=== PATIENT | female | born 1960 | race Caucasian/White ===

== ENCOUNTER 2018-08-12 13:48 | Inpatient (IN) ==
[2018-08-12] MEDS ORDERED: Ondansetron ODT 4 MG TAB.RAPDIS PO PRN ×2 (14:05→18:55)
[2018-08-12] MEDS: *HR* HYDROmorphone 2 MG TABLET PO PRN ×2 (17:12→22:32)
[2018-08-12] MEDS ORDERED: GABAPENTIN 1200 MG PO SCH (18:00)
[2018-08-12] MEDS: Morphine Intrathecdal Pump IT SCH (19:00)
[2018-08-12] MEDS: Celecoxib 100 MG CAPSULE PO SCH (20:01)
[2018-08-12] MEDS: Furosemide 20 MG TABLET PO SCH (20:02)
[2018-08-12] MEDS: Gabapentin 400 MG CAPSULE PO SCH (20:07)
[2018-08-13] MEDS: *HR* HYDROmorphone 2 MG TABLET PO PRN ×4 (03:09→19:25)
[2018-08-13 05:46] LABS: Basophils % 0.7 %; Eosinophils # 0.2 K/mcL (0.0-0.6); Eosinophils % 3.9 %; Hematocrit 33.3 % (35.3-44.9); Hemoglobin 10.9 g/dL (11.5-15.4); Immature Granulocytes % 0.4 % (0-4); Lymphocytes # 1.9 K/mcL (0.6-4.6); Lymphocytes % 33.5 %; Mean Corpuscular HGB Conc 32.7 g/dL (31.6-35.5); Mean Corpuscular Hemoglobin 28.4 pg (28.0-33.3); Mean Corpuscular Volume 86.7 fL (83.0-100.0); Mean Platelet Volume 10.4 fL (9.4-12.4); Monocytes # 0.4 K/mcL (0.0-1.3); Monocytes % 7.3 %; Platelet Count 302 K/mcL (140-400); Red Blood Count 3.84 M/mcL (3.82-4.97); Segmented Neutrophils % 54.2 %; White Blood Count 5.6 K/mcL (4.3-11.1)
[2018-08-13 05:58] LABS: BUN/Creatinine Ratio 24 (6-26); Blood Urea Nitrogen 19 mg/dL (6-20); Carbon Dioxide 29 mEq/L (23-29); Chloride 99 mEq/L (98-107); Glucose 92 mg/dL (70-105); Osmolality,Calculated 284 (280-300); Potassium 4.3 mEq/L (3.5-5.1); Sodium 136 mEq/L (136-145); eGFR For African Americans > 60 (> 60); eGFR For Non-African Americans > 60 (> 60)
[2018-08-13 06:13] LABS: Activated Partial Thrombo Time 35.9 Seconds (26.0-36.0); INR 0.9; Prothrombin Time 10.5 Seconds (9.4-12.1)
[2018-08-13] MEDS: Celecoxib 100 MG CAPSULE PO SCH ×2 (08:50→21:09)
[2018-08-13] MEDS: ESOMEPRAZOLE 40MG PO SCH ×3 (08:50→17:32)
[2018-08-13] MEDS: Furosemide 20 MG TABLET PO SCH ×2 (08:50→21:09)
[2018-08-13] MEDS: Gabapentin 300 MG CAPSULE PO SCH (08:50)
[2018-08-13] MEDS: Morphine Intrathecdal Pump IT SCH (13:38)
--- NOTE | 2018-08-13 17:10 | Internal Med History&Physical ---
Date of Encounter: 08/13/18 Time of Encounter: 16:45 Assessment and Plan (1) Pubic ramus fracture Current visit: No Status: Acute Nonoperative intervention. PT and OT evaluations have been ordered. Analgesics will be continued. Qualifiers: Fracture type: closed Laterality: right Fracture healing: with routine healing Qualified Code(s): S32.591D - Other specified fracture of right pubis, subsequent encounter for fracture with routine healing (2) Osteogenesis imperfecta Current visit: No Status: Acute Fracture treatment as above. (3) GERD (gastroesophageal reflux disease) Current visit: No Status: Chronic She reports omeprazole is not efficacious. I told her she could use Nexium from her own supply. Qualifiers: Esophagitis presence: esophagitis presence not specified Qualified Code(s): K21.9 - Gastro-esophageal reflux disease without esophagitis (4) HTN (hypertension) Current visit: No Status: Chronic Continue lisinopril and Lasix. Qualifiers: Hypertension type: essential hypertension Qualified Code(s): I10 - Essential (primary) hypertension (5) Anemia Current visit: Yes Status: Acute Present intermittently since February 2015. Anemia testing will be done in a.m. Qualifiers: Anemia type: unspecified type Qualified Code(s): D64.9 - Anemia, unspecified Internal Medicine - H&P: HPI Chief complaint: Acetabulum fracture Admitted From: Hospital to Hospital Transfer Plans for Post Hospital Care: Home History of present illness: Ms. Cabello is a 58 year old female who was hospitalized at [facility] August 08- after presenting with a low impact fall at home. She was found to have nondisplaced pubic root fracture extending into the right acetabulum. She was treated nonoperatively. She was discharged to [facility] swing bed for rehabilitation therapy prior to returning to independent living at home. She was diagnosed with osteogenesis imperfecta at age 14 months. She reports she has had "more than 250 fractures" with multiple surgeries. She has not wal ked for over 4 years and uses a power chair for mobility. She has been able to do transfers independently prior to present injury. She denies other bone joint or muscle disorders. Past Med Surg Social Fam HX - Past Medical History Medical history: GERD, hypertension, other Additional medical history: Multiple FRACTURES Psychiatric history: anxiety, depression - Past Surgical History Surgical History: other Additional surgical history: "corrective surgeries"/ortho surgeries (over 55); pain pump. - Social History Smoking Status: Never smoker Smokeless Tobacco Status: No Alcohol use: none Drug use: none - Family History Mother Living Status: Hx Family Cardiac Disorders: Yes (HTN) Hx Family Respiratory Disorders: No Hx Family Cancer: Yes Hx Family GI Disorders: Yes Hx Family Endocrine Disorder: Yes (DM II) Hx Family Neuromuscular Disorders: No Hx Family Neurologic Disorders: No Hx Family HEENT Disorders: No Hx Family Autoimmune Disorders: No Internal Medicine - H&P: Meds Celecoxib [Celebrex] 200 mg PO BID 08/08/18 [History] DULoxetine [Cymbalta] 30 mg PO BID 08/08/18 [History] Esomeprazole Magnesium [Nexium] 40 mg PO BID 08/08/18 [History] Furosemide [Lasix] 20 mg PO BID 08/08/18 [History] Gabapentin 1,200 mg PO HS 08/08/18 [History] Gabapentin 1,200 mg PO QPM 08/08/18 [History] Gabapentin 600 mg PO QAM 08/08/18 [History] Lisinopril [Zestril] 10 mg PO DAILY 08/08/18 [History] Morphine Sulfate/Pf [Morphine IntraThecdal Pump] 1 each IT AD 08/08/18 [History] Ondansetron [Zofran ODT] 8 mg PO 6XD PRN 08/08/18 [History] Tramadol HCl [Ultram] 50 mg PO Q8H PRN 08/08/18 [History] Cyclobenzaprine [Flexeril] 10 mg PO TID PRN #30 tablet 08/12/18 [Rx] HYDROmorphone [Dilaudid] 3 mg PO Q4HR PRN 3 Days #15 tablet 08/12/18 [Rx] Allergy/AdvReac Type Severity Reaction Status Date / Time acetaminophen [From Percocet] AdvReac See Verified 07/05/18 13:26 Comments baclofen AdvReac Blurry Verified 07/05/18 13:26 Vision ibuprofen AdvReac Nausea Verified 07/05/18 13:26 methadone AdvReac See Verified 07/05/18 13:26 Comments naproxen [From Aleve] AdvReac Nausea Verified 07/05/18 13:26 oxycodone [From Percocet] AdvReac See Verified 07/05/18 13:26 Comments oxymorphone [From Opana] AdvReac See Verified 07/05/18 13:26 Comments pregabalin [From Lyrica] AdvReac See Verified 07/05/18 13:26 Comments Tizanidine [From Zanaflex] AdvReac Blurry Verified 07/05/18 13:26 Vision tramadol [From Ultracet] AdvReac See Verified 07/05/18 13:26 Comments All Systems PM: A 10-system review of systems was performed and is negative for pertinent findings except as documented above in the HPI. Review of systems: Gen.: She states her weight has decreased from 180 pounds to 153 pounds in the past few months, intentionally Cardiovascular: She has history of hypertension but denies NM heart failure angina DVT or pulmonary embolus Respiratory: She is a lifelong nonsmoker and denies chronic lung disease GI: She has GERD. She denies disorders of her liver gallbladder or exocrine pancreas : She denies hematuria dysuria or kidney stones Neurologic: She reports febrile seizures in childhood. She reports one seizure as an adult several years ago of uncertain etiology. She is not on seizure medication. She denies large distribution strokes or other neurologic disorders Endocrine: She denies diabetes thyroid disease or hyperlipidemia Hematology/oncology: She denies blood disorders cancers or anemia Psychiatric: She denies anxiety depression or other mental health issues [place] skeletal: As per history of present illness - Constitutional Vitals: Temp Pulse Resp BP Pulse Ox 98.2 F 86 17 132/69 95 08/13/18 06:56 08/13/18 06:56 08/12/18 16:22 08/13/18 06:56 08/13/18 06:56 Exam: Gen.: She is a well-developed well-nourished female sitting in a chair at bedside who appears in no acute distress HEENT: Head is atraumatic and normocephalic. Eyes: EOMI. There is no scleral icterus. Mouth: Mucosa is moist. Neck: There is no thyromegaly or adenopathy noted. Heart: Regular without murmurs gallops or ectopics Lungs: No wheezes or crackles are heard. Abdomen: Soft and nontender. No masses or guarding are noted. Exam is limited because she is in the seated position. Extremities: There is no edema of her lower legs. She has mild DJD changes of her hands. Neurologic: Mental status: She is talkative and a good historian. Cranial nerves: Smile is symmetric. Forehead wrinkles bilaterally. Tongue protrudes mi dline. EOMI. Motor: There is no pronator drift. Cerebellar: Finger to nose is intact bilaterally. Skin: Warm and dry Internal Med - H&P Results - Labs CBC & Chem 7: 08/13/18 05:20 08/13/18 05:20 Labs: Short CBC 08/13/18 Range/Units 05:20 WBC 5.6 (4.3-11.1) K/mcL Hgb 10.9 L (11.5-15.4) g/dL Hct 33.3 L (35.3-44.9) % Plt Count 302 (140-400) K/mcL Neutrophils # 3.0 (1.6-8.9) K/mcL BMP 08/13/18 05:20 Sodium 136 Potassium 4.3 Chloride 99 Carbon Dioxide 29 BUN 19 Creatinine 0.78 Glucose 92 Calcium 9.0
[2018-08-13] MEDS: Gabapentin 400 MG CAPSULE PO SCH ×2 (17:32→21:10)
[2018-08-14] MEDS: Artificial Tears SOLN 15 ML BOTTLE BOTH EYES PRN ×3 (00:14→16:27)
[2018-08-14] MEDS: *HR* HYDROmorphone 2 MG TABLET PO PRN ×5 (00:15→22:19)
[2018-08-14 06:13] LABS: Basophils % 0.6 %; Eosinophils # 0.2 K/mcL (0.0-0.6); Eosinophils % 3.3 %; Hematocrit 33.1 % (35.3-44.9); Hemoglobin 10.7 g/dL (11.5-15.4); Immature Granulocytes % 0.4 % (0-4); Lymphocytes % 30.1 %; Mean Corpuscular HGB Conc 32.3 g/dL (31.6-35.5); Mean Corpuscular Hemoglobin 28.2 pg (28.0-33.3); Mean Corpuscular Volume 87.1 fL (83.0-100.0); Mean Platelet Volume 10.7 fL (9.4-12.4); Monocytes # 0.5 K/mcL (0.0-1.3); Neutrophils # 3.9 K/mcL (1.6-8.9); Platelet Count 306 K/mcL (140-400); Segmented Neutrophils % 57.6 %; White Blood Count 6.7 K/mcL (4.3-11.1)
[2018-08-14 08:52] LABS: % Iron Saturation 14 % (15-50); Iron 52 mcg/dL (50-170); Transferrin 271 mg/dL (203-362)
[2018-08-14 09:11] LABS: Ferritin 45 ng/mL (10-120)
[2018-08-14] MEDS: Furosemide 20 MG TABLET PO SCH ×2 (09:13→19:44)
[2018-08-14] MEDS: ESOMEPRAZOLE 40MG PO SCH ×2 (09:13→16:27)
[2018-08-14] MEDS: Gabapentin 300 MG CAPSULE PO SCH (09:13)
[2018-08-14 09:15] LABS: Folate 8.8 ng/mL (3.0-16.0)
[2018-08-14] MEDS: Celecoxib 100 MG CAPSULE PO SCH ×2 (09:15→19:44)
[2018-08-14] MEDS: Ondansetron ODT 4 MG TAB.RAPDIS SL PRN (11:20)
[2018-08-14] MEDS: Morphine Intrathecdal Pump IT SCH (14:33)
[2018-08-14] MEDS: Gabapentin 400 MG CAPSULE PO SCH ×2 (16:27→19:43)
[2018-08-14] MEDS ORDERED: Cyanocobalamin (B-12) 1,000 MCG/ML VIAL IM ONE (18:22)
--- NOTE | 2018-08-14 18:22 | Internal Med Progress Note ---
Date of Encounter: 08/14/18 Time of Encounter: 18:10 - Assessment and plan (1) Pubic ramus fracture Current Visit: No Status: Acute Assessment and plan: August 14. Continue PT and OT with analgesics. Qualifiers: Fracture type: closed Laterality: right Fracture healing: with routine healing Qualified Code(s): S32.591D - Other specified fracture of right pubis, subsequent encounter for fracture with routine healing (2) Osteogenesis imperfecta Current Visit: No Status: Acute Assessment and plan: August 14. Continue present Rx (3) GERD (gastroesophageal reflux disease) Current Visit: No Status: Chronic Assessment and plan: August 14. Continue Nexium. We discussed reducing the dose to improve absorption of iron. Qualifiers: Esophagitis presence: esophagitis presence not specified Qualified Code(s): K21.9 - Gastro-esophageal reflux disease without esophagitis (4) HTN (hypertension) Current Visit: No Status: Chronic Assessment and plan: August 14. Continue lisinopril and Lasix Qualifiers: Hypertension type: essential hypertension Qualified Code(s): I10 - Essential (primary) hypertension (5) Anemia Current Visit: Yes Status: Acute Assessment and plan: August 14. Anemia testing showed iron 52, transferrin saturation 14%, transferrin 271, ferritin 45, B12 221, and folate 8.8. She will be started on ferrous sulfate with ascorbic acid. She will receive a B12 injection today and start oral B12 supplement. Qualifiers: Anemia type: unspecified type Qualified Code(s): D64.9 - Anemia, unspecified - Subjective Interval history: August 14. She has no new complaints. - Constitutional Vitals: Temp Pulse Resp BP Pulse Ox 97.8 F 77 14 114/56 93 08/14/18 06:57 08/14/18 06:57 08/14/18 06:57 08/14/18 06:57 08/14/18 06:57 Exam: She is resting In a chair at bedside and appears in no acute distress. Her affect is bright and cheerful. I reviewed her medications and lab results. Internal Medicine: Result - Labs CBC & Chem 7: 08/14/18 05:03 08/13/18 05:20 Labs: Short CBC 08/14/18 Range/Units 05:03 WBC 6.7 (4.3-11.1) K/mcL Hgb 10.7 L (11.5-15.4) g/dL Hct 33.1 L (35.3-44.9) % Plt Count 306 (140-400) K/mcL Neutrophils # 3.9 (1.6-8.9) K/mcL - ABG Interpretation ABG results: PT/INR, D-dimer PT 10.5 Seconds (9.4-12.1) 08/13/18 05:20 Consult Discharge Plan - Plan Referrals: Skip Costa DO [Primary Care Provider] - 1 week
[2018-08-15] MEDS: *HR* HYDROmorphone 2 MG TABLET PO PRN ×4 (03:34→23:27)
[2018-08-15] MEDS: Ondansetron ODT 4 MG TAB.RAPDIS SL PRN ×2 (03:34→10:16)
[2018-08-15] MEDS: Ascorbic Acid 500 MG TABLET PO SCH (06:21)
[2018-08-15] MEDS: Artificial Tears SOLN 15 ML BOTTLE BOTH EYES PRN ×3 (10:13→19:34)
[2018-08-15] MEDS: ESOMEPRAZOLE 40MG PO SCH ×2 (10:13→15:55)
[2018-08-15] MEDS: Celecoxib 100 MG CAPSULE PO SCH ×2 (10:14→20:22)
[2018-08-15] MEDS: Gabapentin 300 MG CAPSULE PO SCH (10:15)
[2018-08-15] MEDS: Cyanocobalamin (B-12) 1,000 MCG TABLET PO SCH (10:15)
[2018-08-15] MEDS: Furosemide 20 MG TABLET PO SCH ×2 (10:18→20:22)
[2018-08-15] MEDS: Gabapentin 400 MG CAPSULE PO SCH ×2 (15:55→20:23)
[2018-08-15] MEDS: Morphine Intrathecdal Pump IT SCH (15:56)
[2018-08-16] MEDS: Ascorbic Acid 500 MG TABLET PO SCH (05:15)
[2018-08-16] MEDS: *HR* HYDROmorphone 2 MG TABLET PO PRN ×4 (05:15→21:53)
[2018-08-16] MEDS: Celecoxib 100 MG CAPSULE PO SCH ×2 (09:12→21:52)
[2018-08-16] MEDS: Artificial Tears SOLN 15 ML BOTTLE BOTH EYES PRN ×2 (09:13→21:58)
[2018-08-16] MEDS: Furosemide 20 MG TABLET PO SCH ×2 (09:13→21:52)
[2018-08-16] MEDS: Gabapentin 300 MG CAPSULE PO SCH (09:13)
[2018-08-16] MEDS: Cyanocobalamin (B-12) 1,000 MCG TABLET PO SCH (09:13)
[2018-08-16] MEDS: ESOMEPRAZOLE 40MG PO SCH ×2 (09:13→16:36)
[2018-08-16] MEDS: Ondansetron ODT 4 MG TAB.RAPDIS SL PRN (09:21)
[2018-08-16] MEDS: Morphine Intrathecdal Pump IT SCH (12:54)
[2018-08-16] MEDS: Gabapentin 400 MG CAPSULE PO SCH ×2 (16:36→21:58)
[2018-08-17] MEDS: *HR* HYDROmorphone 2 MG TABLET PO PRN ×3 (04:15→20:27)
[2018-08-17] MEDS: Ascorbic Acid 500 MG TABLET PO SCH (05:33)
[2018-08-17] MEDS: Celecoxib 100 MG CAPSULE PO SCH ×2 (08:22→20:28)
[2018-08-17] MEDS: Gabapentin 300 MG CAPSULE PO SCH (08:22)
[2018-08-17] MEDS: Furosemide 20 MG TABLET PO SCH ×2 (08:23→20:28)
[2018-08-17] MEDS: Cyanocobalamin (B-12) 1,000 MCG TABLET PO SCH (08:25)
[2018-08-17] MEDS: ESOMEPRAZOLE 40MG PO SCH ×2 (08:25→17:52)
[2018-08-17] MEDS: Ondansetron ODT 4 MG TAB.RAPDIS SL PRN (09:02)
--- NOTE | 2018-08-17 10:23 | Internal Med Progress Note ---
Date of Encounter: 08/17/18 Time of Encounter: 10:15 - Assessment and plan (1) Pubic ramus fracture Current Visit: No Status: Acute Assessment and plan: August 14. Continue PT and OT with analgesics. [place]-3. Continue present Rx. Follow-up with orthopedist in a few weeks. Qualifiers: Fracture type: closed Laterality: right Fracture healing: with routine healing Qualified Code(s): S32.591D - Other specified fracture of right pubis, subsequent encounter for fracture with routine healing (2) Osteogenesis imperfecta Current Visit: No Status: Acute Assessment and plan: August 14. Continue present Rx (3) GERD (gastroesophageal reflux disease) Current Visit: No Status: Chronic Assessment and plan: August 14. Continue Nexium. We discussed reducing the dose to improve absorption of iron. Qualifiers: Esophagitis presence: esophagitis presence not specified Qualified Code(s): K21.9 - Gastro-esophageal reflux disease without esophagitis (4) HTN (hypertension) Current Visit: No Status: Chronic Assessment and plan: August 14. Continue lisinopril and Lasix Qualifiers: Hypertension type: essential hypertension Qualified Code(s): I10 - Essential (primary) hypertension (5) Anemia Current Visit: Yes Status: Acute Assessment and plan: August 14. Anemia testing showed iron 52, transferrin saturation 14%, transfer rin 271, ferritin 45, B12 221, and folate 8.8. She will be started on ferrous sulfate with ascorbic acid. She will receive a B12 injection today and start oral B12 supplement. August 17. Continue ferrous sulfate with ascorbic acid and B12 supplementation. Monitor CBC periodically. Qualifiers: Anemia type: unspecified type Qualified Code(s): D64.9 - Anemia, unspecified - Subjective Interval history: August 14. She has no new complaints. August 17. She complains of nasal congestion. She reports the orthopedist gave her an encouraging report at the visit yesterday. She is to remain TTWB at this time - Constitutional Vitals: Temp Pulse Resp BP Pulse Ox 97.6 F 77 16 91/51 96 08/17/18 06:40 08/17/18 06:40 08/17/18 06:40 08/17/18 06:40 08/17/18 06:40 Exam: She is sitting comfortably in a chair at bedside and appears in no acute distress. Her affect is bright and cheerful. I reviewed her medications and lab results. Internal Medicine: Result - Labs CBC & Chem 7: 08/14/18 05:03 08/13/18 05:20 - ABG Interpretation ABG results: PT/INR, D-dimer PT 10.5 Seconds (9.4-12.1) 08/13/18 05:20 Consult Discharge Plan - Plan Referrals: Skip Costa DO [Primary Care Provider] - 1 week
[2018-08-17] MEDS: Morphine Intrathecdal Pump IT SCH (15:14)
[2018-08-17] MEDS: Gabapentin 400 MG CAPSULE PO SCH ×2 (15:38→20:28)
[2018-08-17] MEDS: Oxymetazoline Nasal SPRAY BOTTLE NS SCH (17:52)
[2018-08-17] MEDS: Artificial Tears SOLN 15 ML BOTTLE BOTH EYES PRN (20:29)
[2018-08-18] MEDS: *HR* HYDROmorphone 2 MG TABLET PO PRN ×4 (02:18→20:39)
[2018-08-18] MEDS: Ascorbic Acid 500 MG TABLET PO SCH (06:37)
[2018-08-18] MEDS: Oxymetazoline Nasal SPRAY BOTTLE NS SCH ×2 (06:40→17:11)
[2018-08-18] MEDS: Gabapentin 300 MG CAPSULE PO SCH (07:45)
[2018-08-18] MEDS: Furosemide 20 MG TABLET PO SCH ×2 (07:46→20:40)
[2018-08-18] MEDS: Celecoxib 100 MG CAPSULE PO SCH ×2 (07:46→20:40)
[2018-08-18] MEDS: ESOMEPRAZOLE 40MG PO SCH ×2 (07:46→17:11)
[2018-08-18] MEDS: Ondansetron ODT 4 MG TAB.RAPDIS SL PRN (07:46)
[2018-08-18] MEDS: Cyanocobalamin (B-12) 1,000 MCG TABLET PO SCH (07:47)
[2018-08-18] MEDS: Artificial Tears SOLN 15 ML BOTTLE BOTH EYES PRN ×2 (14:51→20:40)
[2018-08-18] MEDS: Morphine Intrathecdal Pump IT SCH (16:10)
[2018-08-18] MEDS: Gabapentin 400 MG CAPSULE PO SCH ×2 (17:10→21:48)
[2018-08-19] MEDS: *HR* HYDROmorphone 2 MG TABLET PO PRN ×2 (01:55→18:02)
[2018-08-19] MEDS: Ascorbic Acid 500 MG TABLET PO SCH (06:51)
[2018-08-19] MEDS: Oxymetazoline Nasal SPRAY BOTTLE NS SCH ×2 (06:51→18:10)
[2018-08-19] MEDS: Celecoxib 100 MG CAPSULE PO SCH ×2 (09:26→20:54)
[2018-08-19] MEDS: Gabapentin 300 MG CAPSULE PO SCH (09:29)
[2018-08-19] MEDS: Furosemide 20 MG TABLET PO SCH ×2 (09:29→20:54)
[2018-08-19] MEDS: Cyanocobalamin (B-12) 1,000 MCG TABLET PO SCH (09:29)
[2018-08-19] MEDS: ESOMEPRAZOLE 40MG PO SCH ×2 (09:30→18:10)
[2018-08-19] MEDS: Artificial Tears SOLN 15 ML BOTTLE BOTH EYES PRN ×2 (09:30→18:04)
[2018-08-19] MEDS: Morphine Intrathecdal Pump IT SCH (13:49)
[2018-08-19] MEDS: Gabapentin 400 MG CAPSULE PO SCH ×2 (15:12→20:54)
[2018-08-20] MEDS: *HR* HYDROmorphone 2 MG TABLET PO PRN ×5 (00:10→20:32)
[2018-08-20] MEDS: Ascorbic Acid 500 MG TABLET PO SCH (06:00)
[2018-08-20] MEDS: Oxymetazoline Nasal SPRAY BOTTLE NS SCH ×2 (06:00→06:04)
[2018-08-20] MEDS: Furosemide 20 MG TABLET PO SCH ×2 (09:42→20:31)
[2018-08-20] MEDS: Cyanocobalamin (B-12) 1,000 MCG TABLET PO SCH (09:42)
[2018-08-20] MEDS: Gabapentin 300 MG CAPSULE PO SCH (09:43)
[2018-08-20] MEDS: Celecoxib 100 MG CAPSULE PO SCH ×2 (09:43→20:31)
[2018-08-20] MEDS: Artificial Tears SOLN 15 ML BOTTLE BOTH EYES PRN ×2 (09:43→16:36)
[2018-08-20] MEDS: ESOMEPRAZOLE 40MG PO SCH ×2 (09:43→16:35)
[2018-08-20] MEDS: Morphine Intrathecdal Pump IT SCH (13:48)
[2018-08-20] MEDS: Gabapentin 400 MG CAPSULE PO SCH ×2 (14:39→20:32)
--- NOTE | 2018-08-20 18:54 | Internal Med Progress Note ---
Date of Encounter: 08/20/18 Time of Encounter: 18:45 - Assessment and plan (1) Pubic ramus fracture Current Visit: No Status: Acute Assessment and plan: August 14. Continue PT and OT with analgesics. August 17. Continue present Rx. Follow-up with orthopedist in a few weeks. Qualifiers: Fracture type: closed Laterality: right Fracture healing: with routine healing Qualified Code(s): S32.591D - Other specified fracture of right pubis, subsequent encounter for fracture with routine healing (2) Osteogenesis imperfecta Current Visit: No Status: Acute Assessment and plan: August 14. Continue present Rx (3) GERD (gastroesophageal reflux disease) Current Visit: No Status: Chronic Assessment and plan: August 14. Continue Nexium. We discussed reducing the dose to improve absorption of iron. Qualifiers: Esophagitis presence: esophagitis presence not specified Qualified Code(s): K21.9 - Gastro-esophageal reflux disease without esophagitis (4) HTN (hypertension) Current Visit: No Status: Chronic Assessment and plan: August 14. Continue lisinopril and Lasix Qualifiers: Hypertension type: essential hypertension Qualified Code(s): I10 - Essential (primary) hypertension (5) Anemia Current Visit: Yes Status: Acute Assessment and plan: August 14. Anemia testing showed iron 52, transferrin saturation 14%, transferri n 271, ferritin 45, B12 221, and folate 8.8. She will be started on ferrous sulfate with ascorbic acid. She will receive a B12 injection today and start oral B12 supplement. August 17. Continue ferrous sulfate with ascorbic acid and B12 supplementation. Monitor CBC periodically. Qualifiers: Anemia type: unspecified type Qualified Code(s): D64.9 - Anemia, unspecified - Subjective Interval history: August 14. She has no new complaints. August 17. She complains of nasal congestion. She reports the orthopedist gave her an encouraging report at the visit yesterday. She is to remain TTWB at this ti me August 20. She has no new complaints. She feels she is making progress but is not ready to return home yet. - Constitutional Vitals: Temp Pulse Resp BP Pulse Ox 98.4 F 91 16 106/65 93 08/20/18 06:56 08/20/18 06:56 08/20/18 06:56 08/20/18 06:56 08/20/18 06:56 Exam: She is resting comfortably in a chair at bedside and appears in no acute distress. Her affect is cheerful. She has trace to 1+ edema of the right lower leg and trace edema in the left lower leg. I reviewed her medications and lab results. Internal Medicine: Result - Labs CBC & Chem 7: 08/14/18 05:03 08/13/18 05:20 - ABG Interpretation ABG results: PT/INR, D-dimer PT 10.5 Seconds (9.4-12.1) 08/13/18 05:20 Consult Discharge Plan - Plan Referrals: Skip Costa DO [Primary Care Provider] - 1 week
[2018-08-21] MEDS: *HR* HYDROmorphone 2 MG TABLET PO PRN ×5 (01:40→20:45)
[2018-08-21] MEDS: Ascorbic Acid 500 MG TABLET PO SCH (05:43)
[2018-08-21] MEDS: ESOMEPRAZOLE 40MG PO SCH ×2 (07:58→16:05)
[2018-08-21] MEDS: Gabapentin 300 MG CAPSULE PO SCH (07:58)
[2018-08-21] MEDS: Celecoxib 100 MG CAPSULE PO SCH ×2 (07:58→20:45)
[2018-08-21] MEDS: Cyanocobalamin (B-12) 1,000 MCG TABLET PO SCH (07:59)
[2018-08-21] MEDS: Furosemide 20 MG TABLET PO SCH ×2 (07:59→20:44)
[2018-08-21] MEDS: Morphine Intrathecdal Pump IT SCH (12:48)
[2018-08-21] MEDS: Gabapentin 400 MG CAPSULE PO SCH ×2 (16:05→20:48)
[2018-08-22] MEDS: *HR* HYDROmorphone 2 MG TABLET PO PRN ×5 (01:15→20:31)
[2018-08-22] MEDS: Ascorbic Acid 500 MG TABLET PO SCH (05:26)
[2018-08-22] MEDS: ESOMEPRAZOLE 40MG PO SCH ×2 (08:39→16:20)
[2018-08-22] MEDS: Artificial Tears SOLN 15 ML BOTTLE BOTH EYES PRN (08:39)
[2018-08-22] MEDS: Gabapentin 300 MG CAPSULE PO SCH (08:40)
[2018-08-22] MEDS: Celecoxib 100 MG CAPSULE PO SCH ×2 (08:40→20:32)
[2018-08-22] MEDS: Furosemide 20 MG TABLET PO SCH ×2 (08:40→20:31)
[2018-08-22] MEDS: Cyanocobalamin (B-12) 1,000 MCG TABLET PO SCH (08:40)
[2018-08-22] MEDS: Morphine Intrathecdal Pump IT SCH (13:43)
[2018-08-22] MEDS: Gabapentin 400 MG CAPSULE PO SCH ×2 (16:18→20:33)
[2018-08-23] MEDS: *HR* HYDROmorphone 2 MG TABLET PO PRN ×4 (02:06→21:43)
[2018-08-23] MEDS: Ascorbic Acid 500 MG TABLET PO SCH (06:29)
[2018-08-23] MEDS: Furosemide 20 MG TABLET PO SCH ×2 (09:13→20:17)
[2018-08-23] MEDS: Celecoxib 100 MG CAPSULE PO SCH ×2 (09:13→20:17)
[2018-08-23] MEDS: Gabapentin 300 MG CAPSULE PO SCH (09:14)
[2018-08-23] MEDS: Cyanocobalamin (B-12) 1,000 MCG TABLET PO SCH (09:14)
[2018-08-23] MEDS: ESOMEPRAZOLE 40MG PO SCH ×2 (09:14→17:27)
[2018-08-23] MEDS: Artificial Tears SOLN 15 ML BOTTLE BOTH EYES PRN (09:14)
--- NOTE | 2018-08-23 12:15 | Internal Med Progress Note ---
Date of Encounter: 08/23/18 Time of Encounter: 12:05 - Assessment and plan (1) Pubic ramus fracture Current Visit: No Status: Acute Assessment and plan: August 14. Continue PT and OT with analgesics. August 17. Continue present Rx. Follow-up with orthopedist in a few weeks. Qualifiers: Fracture type: closed Laterality: right Fracture healing: with routine healing Qualified Code(s): S32.591D - Other specified fracture of right pubis, subsequent encounter for fracture with routine healing (2) Osteogenesis imperfecta Current Visit: No Status: Acute Assessment and plan: August 14. Continue present Rx (3) GERD (gastroesophageal reflux disease) Current Visit: No Status: Chronic Assessment and plan: August 14. Continue Nexium. We discussed reducing the dose to improve absorption of iron. Qualifiers: Esophagitis presence: esophagitis presence not specified Qualified Code(s): K21.9 - Gastro-esophageal reflux disease without esophagitis (4) HTN (hypertension) Current Visit: No Status: Chronic Assessment and plan: August 14. Continue lisinopril and Lasix Qualifiers: Hypertension type: essential hypertension Qualified Code(s): I10 - Essential (primary) hypertension (5) Anemia Current Visit: Yes Status: Acute Assessment and plan: August 14. Anemia testing showed iron 52, transferrin saturation 14%, transferri n 271, ferritin 45, B12 221, and folate 8.8. She will be started on ferrous sulfate with ascorbic acid. She will receive a B12 injection today and start oral B12 supplement. August 17. Continue ferrous sulfate with ascorbic acid and B12 supplementation. Monitor CBC periodically. August 23. Check CBC in a.m. She wishes to contact her PCP and see if there are additional labs he wishes to have drawn before her follow-up visit with him shortly after discharge next week. Qualifiers: Anemia type: unspecified type Qualified Code(s): D64.9 - Anemia, unspecified - Subjective Interval history: August 14. She has no new complaints. August 17. She complains of nasal congestion. She reports the orthopedist gave her an encouraging report at the visit yesterday. She is to remain TTWB at this time August 20. She has no new complaints. She feels she is making progress but is not ready to return home yet. August 23. She has no new complaints. She states the intensity of her pain has overall lessened but its duration has slightly increased. She has noted some pain in her left hip area after therapy today. - Constitutional Vitals: Temp Pulse Resp BP Pulse Ox 97.9 F 79 16 119/80 96 08/23/18 06:37 08/23/18 06:37 08/23/18 06:37 08/23/18 06:37 08/23/18 06:37 Exam: She is sitting in a chair at bedside resting comfortably and appears in no acute distress. Her affect is bright and cheerful. I reviewed her medications and lab results. Internal Medicine: Result - Labs CBC & Chem 7: 08/14/18 05:03 08/13/18 05:20 - ABG Interpretation ABG results: PT/INR, D-dimer PT 10.5 Seconds (9.4-12.1) 08/13/18 05:20 Consult Discharge Plan - Plan Referrals: Skip Costa DO [Primary Care Provider] - 1 week
[2018-08-23] MEDS: Morphine Intrathecdal Pump IT SCH (13:42)
[2018-08-23] MEDS: Gabapentin 400 MG CAPSULE PO SCH ×2 (14:51→20:18)
[2018-08-23] MEDS: traMADol 50 MG TABLET PO PRN (20:17)
[2018-08-24] MEDS: *HR* HYDROmorphone 2 MG TABLET PO PRN ×4 (04:02→21:07)
[2018-08-24] MEDS: ESOMEPRAZOLE 40MG PO SCH ×2 (06:29→15:34)
[2018-08-24] MEDS: Ascorbic Acid 500 MG TABLET PO SCH (06:29)
[2018-08-24] MEDS: traMADol 50 MG TABLET PO PRN (06:29)
[2018-08-24 06:38] LABS: Basophils % 0.5 %; Eosinophils # 0.4 K/mcL (0.0-0.6); Hematocrit 31.9 % (35.3-44.9); Hemoglobin 10.3 g/dL (11.5-15.4); Immature Granulocytes % 0.6 % (0-4); Lymphocytes # 1.6 K/mcL (0.6-4.6); Lymphocytes % 24.7 %; Mean Corpuscular HGB Conc 32.3 g/dL (31.6-35.5); Mean Corpuscular Hemoglobin 28.1 pg (28.0-33.3); Mean Corpuscular Volume 86.9 fL (83.0-100.0); Mean Platelet Volume 10.5 fL (9.4-12.4); Monocytes # 0.4 K/mcL (0.0-1.3); Monocytes % 6.9 %; Neutrophils # 3.9 K/mcL (1.6-8.9); Platelet Count 333 K/mcL (140-400); Red Blood Count 3.67 M/mcL (3.82-4.97); Red Cell Distribution Width 12.4 % (11.5-14.5); Segmented Neutrophils % 61.3 %; White Blood Count 6.4 K/mcL (4.3-11.1)
[2018-08-24] MEDS: Furosemide 20 MG TABLET PO SCH ×2 (08:23→21:07)
[2018-08-24] MEDS: Cyanocobalamin (B-12) 1,000 MCG TABLET PO SCH (08:23)
[2018-08-24] MEDS: Celecoxib 100 MG CAPSULE PO SCH ×2 (08:23→21:06)
[2018-08-24] MEDS: Gabapentin 300 MG CAPSULE PO SCH (08:24)
[2018-08-24] MEDS: Ondansetron ODT 4 MG TAB.RAPDIS SL PRN (08:24)
[2018-08-24] MEDS: Morphine Intrathecdal Pump IT SCH (15:29)
[2018-08-24] MEDS: Gabapentin 400 MG CAPSULE PO SCH ×2 (15:34→21:14)
[2018-08-24] MEDS: Artificial Tears SOLN 15 ML BOTTLE BOTH EYES PRN ×2 (15:38→21:06)
[2018-08-25] MEDS: traMADol 50 MG TABLET PO PRN ×3 (00:02→17:33)
[2018-08-25] MEDS: *HR* HYDROmorphone 2 MG TABLET PO PRN ×3 (03:29→21:52)
[2018-08-25] MEDS: Ascorbic Acid 500 MG TABLET PO SCH (05:34)
[2018-08-25] MEDS: ESOMEPRAZOLE 40MG PO SCH ×2 (09:29→15:57)
[2018-08-25] MEDS: Furosemide 20 MG TABLET PO SCH (09:29)
[2018-08-25] MEDS: Cyanocobalamin (B-12) 1,000 MCG TABLET PO SCH (09:30)
[2018-08-25] MEDS: Gabapentin 300 MG CAPSULE PO SCH (09:30)
[2018-08-25] MEDS: Celecoxib 100 MG CAPSULE PO SCH ×2 (09:30→21:53)
[2018-08-25] MEDS: Morphine Intrathecdal Pump IT SCH (13:11)
[2018-08-25] MEDS: Gabapentin 400 MG CAPSULE PO SCH ×2 (15:57→21:53)
--- NOTE | 2018-08-25 17:10 | Internal Med Progress Note ---
Date of Encounter: 08/25/18 Time of Encounter: 17:00 - Assessment and plan (1) Pubic ramus fracture Current Visit: No Status: Acute Assessment and plan: August 14. Continue PT and OT with analgesics. August 17. Continue present Rx. Follow-up with orthopedist in a few weeks. August 25. Start Lovenox for DVT prophylaxis. Qualifiers: Fracture type: closed Laterality: right Fracture healing: with routine healing Qualified Code(s): S32.591D - Other specified fracture of right pubis, subsequent encounter for fracture with routine healing (2) Osteogenesis imperfecta Current Visit: No Status: Acute Assessment and plan: August 14. Continue present Rx (3) GERD (gastroesophageal reflux disease) Current Visit: No Status: Chronic Assessment and plan: August 14. Continue Nexium. We discussed reducing the dose to improve absorpti on of iron. Qualifiers: Esophagitis presence: esophagitis presence not specified Qualified Code(s): K21.9 - Gastro-esophageal reflux disease without esophagitis (4) HTN (hypertension) Current Visit: No Status: Chronic Assessment and plan: August 14. Continue lisinopril and Lasix August 25. Continue lisinopril. Change from Lasix to Bumex. Qualifiers: Hypertension type: essential hypertension Qualified Code(s): I10 - Essential (primary) hypertension (5) Anemia Current Visit: Yes Status: Acute Assessment and plan: August 14. Anemia testing showed iron 52, transferrin saturation 14%, trans anny 271, ferritin 45, B12 221, and folate 8.8. She will be started on ferrous sulfate with ascorbic acid. She will receive a B12 injection today and start oral B12 supplement. August 17. Continue ferrous sulfate with ascorbic acid and B12 supplementation. Monitor CBC periodically. August 23. Check CBC in a.m. She wishes to contact her PCP and see if there are additional labs he wishes to have drawn before her follow-up visit with him shortly after discharge next week. August 25. Hemoglobin has slightly decreased to 10.3. Continue to monitor. Qualifiers: Anemia type: unspecified type Qualified Code(s): D64.9 - Anemia, unspecified (6) Edema Current Visit: Yes Status: Acute Assessment and plan: August 25. Check BN peptide in a.m. Change from Lasix to Bumex. Qualifiers: Edema type: unspecified Qualified Code(s): R60.9 - Edema, unspecified - Subjective Interval history: August 14. She has no new complaints. August 17. She complains of nasal congestion. She reports the orthopedist gave her an encouraging report at the visit yesterday. She is to remain TTWB at this time August 20. She has no new complaints. She feels she is making progress but is not ready to return home yet. August 23. She has no new complaints. She states the intensity of her pain has overall lessened but its duration has slightly increased. She has noted some p ain in her left hip area after therapy today. August 25. She states her lower legs are more swollen than prior to coming in the hospital. - Constitutional Vitals: Temp Pulse Resp BP Pulse Ox 98.4 F 85 16 105/72 94 08/25/18 08:46 08/25/18 08:46 08/25/18 08:46 08/25/18 08:46 08/25/18 08:46 Exam: She is sitting in a chair at bedside resting comfortably eating her meal. There is 1-2+ edema bilaterally of the lower legs and dorsum of the feet. There does not appear to be active cellulitis. I reviewed her medications and lab results. Internal Medicine: Result - Labs CBC & Chem 7: 08/24/18 05:31 08/13/18 05:20 - ABG Interpretation ABG results: PT/INR, D-dimer PT 10.5 Seconds (9.4-12.1) 08/13/18 05:20 Consult Discharge Plan - Plan Referrals: Skip Costa DO [Primary Care Provider] - 1 week
[2018-08-25] MEDS: Bumetanide 1 MG TABLET PO SCH (17:33)
[2018-08-25] MEDS: Artificial Tears SOLN 15 ML BOTTLE BOTH EYES PRN (21:53)
[2018-08-26] MEDS: traMADol 50 MG TABLET PO PRN ×3 (01:33→22:01)
[2018-08-26] MEDS: *HR* HYDROmorphone 2 MG TABLET PO PRN ×4 (03:48→19:55)
[2018-08-26 05:29] LABS: Basophils % 0.6 %; Eosinophils # 0.3 K/mcL (0.0-0.6); Eosinophils % 5.4 %; Hematocrit 33.3 % (35.3-44.9); Hemoglobin 10.9 g/dL (11.5-15.4); Immature Granulocytes % 0.3 % (0-4); Lymphocytes # 1.8 K/mcL (0.6-4.6); Lymphocytes % 27.7 %; Mean Corpuscular HGB Conc 32.7 g/dL (31.6-35.5); Mean Corpuscular Hemoglobin 28.4 pg (28.0-33.3); Mean Corpuscular Volume 86.7 fL (83.0-100.0); Mean Platelet Volume 10.4 fL (9.4-12.4); Monocytes # 0.5 K/mcL (0.0-1.3); Monocytes % 8.2 %; Neutrophils # 3.7 K/mcL (1.6-8.9); Platelet Count 354 K/mcL (140-400); Red Blood Count 3.84 M/mcL (3.82-4.97); Red Cell Distribution Width 12.5 % (11.5-14.5); Segmented Neutrophils % 57.8 %; White Blood Count 6.4 K/mcL (4.3-11.1)
[2018-08-26 05:57] LABS: BUN/Creatinine Ratio 32 (6-26); Blood Urea Nitrogen 24 mg/dL (6-20); Calcium 9.1 mg/dL (8.6-10.3); Carbon Dioxide 31 mEq/L (23-29); Chloride 92 mEq/L (98-107); Glucose 103 mg/dL (70-105); Osmolality,Calculated 276 (280-300); Sodium 131 mEq/L (136-145); eGFR For African Americans > 60 (> 60); eGFR For Non-African Americans > 60 (> 60)
[2018-08-26] MEDS: *HR* Enoxaparin 40 MG/0.4 ML SYRINGE SQ SCH (06:46)
[2018-08-26] MEDS: Ascorbic Acid 500 MG TABLET PO SCH (06:46)
[2018-08-26] MEDS: Ondansetron ODT 4 MG TAB.RAPDIS SL PRN (07:58)
[2018-08-26] MEDS: ESOMEPRAZOLE 40MG PO SCH ×2 (07:59→16:55)
[2018-08-26] MEDS: Artificial Tears SOLN 15 ML BOTTLE BOTH EYES PRN ×2 (08:00→16:55)
[2018-08-26] MEDS: Cyanocobalamin (B-12) 1,000 MCG TABLET PO SCH (09:45)
[2018-08-26] MEDS: Celecoxib 100 MG CAPSULE PO SCH ×2 (09:45→19:54)
[2018-08-26] MEDS: Bumetanide 1 MG TABLET PO SCH ×2 (09:45→16:55)
[2018-08-26] MEDS: Gabapentin 300 MG CAPSULE PO SCH (09:45)
[2018-08-26 10:59] LABS: % Iron Saturation 9 % (15-50); Iron 39 mcg/dL (50-170); Transferrin 296 mg/dL (203-362)
[2018-08-26 11:18] LABS: Ferritin 30 ng/mL (10-120)
[2018-08-26] MEDS: Morphine Intrathecdal Pump IT SCH (13:57)
[2018-08-26] MEDS: Gabapentin 400 MG CAPSULE PO SCH ×2 (17:00→22:09)
[2018-08-27] MEDS: *HR* HYDROmorphone 2 MG TABLET PO PRN ×4 (00:32→19:59)
[2018-08-27] MEDS: *HR* Enoxaparin 40 MG/0.4 ML SYRINGE SQ SCH (05:10)
[2018-08-27] MEDS: Ascorbic Acid 500 MG TABLET PO SCH (05:10)
[2018-08-27] MEDS: Ondansetron ODT 4 MG TAB.RAPDIS SL PRN (05:10)
[2018-08-27] MEDS: Bumetanide 1 MG TABLET PO SCH ×2 (07:45→16:46)
[2018-08-27] MEDS: ESOMEPRAZOLE 40MG PO SCH ×2 (07:45→16:47)
[2018-08-27] MEDS: traMADol 50 MG TABLET PO PRN ×2 (08:01→16:46)
[2018-08-27] MEDS: Celecoxib 100 MG CAPSULE PO SCH ×2 (10:33→19:59)
[2018-08-27] MEDS: Cyanocobalamin (B-12) 1,000 MCG TABLET PO SCH (10:33)
[2018-08-27] MEDS: Gabapentin 300 MG CAPSULE PO SCH (10:33)
[2018-08-27] MEDS: Morphine Intrathecdal Pump IT SCH (14:58)
[2018-08-27] MEDS: Gabapentin 400 MG CAPSULE PO SCH ×2 (15:05→19:59)
[2018-08-27] MEDS: Artificial Tears SOLN 15 ML BOTTLE BOTH EYES PRN (16:47)
--- NOTE | 2018-08-27 19:17 | Internal Med Progress Note ---
Date of Encounter: 08/27/18 Time of Encounter: 19:00 - Assessment and plan (1) Pubic ramus fracture Current Visit: No Status: Acute Assessment and plan: August 14. Continue PT and OT with analgesics. August 17. Continue present Rx. Follow-up with orthopedist in a few weeks. August 25. Start Lovenox for DVT prophylaxis. Qualifiers: Fracture type: closed Laterality: right Fracture healing: with routine healing Qualified Code(s): S32.591D - Other specified fracture of right pubis, subsequent encounter for fracture with routine healing (2) Osteogenesis imperfecta Current Visit: No Status: Acute Assessment and plan: August 14. Continue present Rx (3) GERD (gastroesophageal reflux disease) Current Visit: No Status: Chronic Assessment and plan: August 14. Continue Nexium. We discussed reducing the dose to improve absorpti on of iron. August 27. She does not wish to reduce Nexium to improve her iron absorption. She complains of mid abdominal discomfort in addition to GERD. Fecal H. pylori antigen will be ordered. Qualifiers: Esophagitis presence: esophagitis presence not specified Qualified Code(s): K21.9 - Gastro-esophageal reflux disease without esophagitis (4) HTN (hypertension) Current Visit: No Status: Chronic Assessment and plan: August 14. Continue lisinopril and Lasix August 25. Continue lisinopril. Change from Lasix to Bumex. Qualifiers: Hypertension type: essential hypertension Qualified Code(s): I10 - Essential (primary) hypertension (5) Anemia Current Visit: Yes Status: Acute Assessment and plan: August 14. Anemia testing showed iron 52, transferrin saturation 14%, transferrin 271, ferritin 45, B12 221, and folate 8.8. She will be started on ferrous sulfate with ascorbic acid. She will receive a B12 injection today and start oral B12 supplement. August 17. Continue ferrous sulfate with ascorbic acid and B12 supplementation. Monitor CBC periodically. August 23. Check CBC in a.m. She wishes to contact her PCP and see if there are additional labs he wishes to have drawn before her follow-up visit with him shortly after discharge next week. August 25. Hemoglobin has slightly decreased to 10.3. Continue to monitor. August 27. Repeat iron studies show iron 39, transferrin saturation 9%, transferrin 296, and ferritin 30. She does not want to discontinue PPI to facilitate iron absorption due to GERD symptoms. Iron sucrose will be given IV. Qualifiers: Anemia type: unspecified type Qualified Code(s): D64.9 - Anemia, unspec ified (6) Edema Current Visit: Yes Status: Acute Assessment and plan: August 25. Check BN peptide in a.m. Change from Lasix to Bumex. August 27. BN peptide normal at 51. Discontinue Celebrex and see if edema lessens. Qualifiers: Edema type: unspecified Qualified Code(s): R60.9 - Edema, unspecified - Subjective Interval history: August 14. She has no new complaints. August 17. She complains of nasal congestion. She reports the orthopedist gave her an encouraging report at the visit yesterday. She is to remain [facility] at this time August 20. She has no new complaints. She feels she is making progress but is not ready to return home yet. August 23. She has no new complaints. She states the intensity of her pain has overall lessened but its duration has slightly increased. She has noted some pain in her left hip area after therapy today. August 25. She states her lower legs are more swollen than prior to coming in the hospital. August 27. She has no new complaints. - Constitutional Vitals: Temp Pulse Resp BP Pulse Ox 98.6 F 89 17 118/72 90 08/27/18 18:43 08/27/18 18:43 08/27/18 18:43 08/27/18 18:43 08/27/18 18:43 Exam: She is resting comfortably in bed and appears in no acute distress. Her lower leg edema shows no significant change. Her affect is bright and cheerful. I reviewed her medications and lab results. Internal Medicine: Result - Labs CBC & Chem 7: 08/26/18 04:50 08/26/18 04:50 - ABG Interpretation ABG results: PT/INR, D-dimer PT 10.5 Seconds (9.4-12.1) 08/13/18 05:20 Consult Discharge Plan - Plan Referrals: Skip Costa DO [Primary Care Provider] - 1 week
[2018-08-28] MEDS: *HR* HYDROmorphone 2 MG TABLET PO PRN ×4 (00:16→18:57)
[2018-08-28] MEDS: traMADol 50 MG TABLET PO PRN ×3 (03:33→20:45)
[2018-08-28] MEDS: Ascorbic Acid 500 MG TABLET PO SCH (06:02)
[2018-08-28] MEDS: *HR* Enoxaparin 40 MG/0.4 ML SYRINGE SQ SCH (06:02)
[2018-08-28] MEDS: Ondansetron ODT 4 MG TAB.RAPDIS SL PRN (06:10)
[2018-08-28] MEDS: Gabapentin 300 MG CAPSULE PO SCH (08:28)
[2018-08-28] MEDS: Bumetanide 1 MG TABLET PO SCH ×2 (08:28→17:36)
[2018-08-28] MEDS: Cyanocobalamin (B-12) 1,000 MCG TABLET PO SCH (08:28)
[2018-08-28] MEDS: ESOMEPRAZOLE 40MG PO SCH ×2 (08:29→17:36)
[2018-08-28] MEDS ORDERED: Iron Sucrose Complex 200 MG in 0.9 % Sodium Chloride 100 ML IVPB ONE (09:00)
[2018-08-28] MEDS: Celecoxib 100 MG CAPSULE PO SCH ×2 (09:03→20:33)
[2018-08-28] MEDS: Morphine Intrathecdal Pump IT SCH (14:05)
[2018-08-28] MEDS: Gabapentin 400 MG CAPSULE PO SCH ×2 (15:13→20:33)
[2018-08-29] MEDS: *HR* HYDROmorphone 2 MG TABLET PO PRN ×5 (00:04→21:38)
[2018-08-29] MEDS: Ascorbic Acid 500 MG TABLET PO SCH (05:15)
[2018-08-29] MEDS: *HR* Enoxaparin 40 MG/0.4 ML SYRINGE SQ SCH (05:16)
[2018-08-29] MEDS: Gabapentin 300 MG CAPSULE PO SCH (08:33)
[2018-08-29] MEDS: Celecoxib 100 MG CAPSULE PO SCH (08:33)
[2018-08-29] MEDS: Bumetanide 1 MG TABLET PO SCH ×2 (08:33→15:34)
[2018-08-29] MEDS: Cyanocobalamin (B-12) 1,000 MCG TABLET PO SCH (08:33)
[2018-08-29] MEDS: ESOMEPRAZOLE 40MG PO SCH ×2 (08:33→15:33)
[2018-08-29] MEDS: traMADol 50 MG TABLET PO PRN ×2 (08:44→18:11)
[2018-08-29] MEDS: Morphine Intrathecdal Pump IT SCH (15:28)
[2018-08-29] MEDS: Gabapentin 400 MG CAPSULE PO SCH ×2 (15:33→21:37)
--- NOTE | 2018-08-29 16:49 | Internal Med Progress Note ---
Date of Encounter: 08/29/18 Time of Encounter: 16:40 - Assessment and plan (1) Pubic ramus fracture Current Visit: No Status: Acute Assessment and plan: August 14. Continue PT and OT with analgesics. August 17. Continue present Rx. Follow-up with orthopedist in a few weeks. August 25. Start Lovenox for DVT prophylaxis. Qualifiers: Fracture type: closed Laterality: right Fracture healing: with routine healing Qualified Code(s): S32.591D - Other specified fracture of right pubis, subsequent encounter for fracture with routine healing (2) Osteogenesis imperfecta Current Visit: No Status: Acute Assessment and plan: August 14. Continue present Rx (3) GERD (gastroesophageal reflux disease) Current Visit: No Status: Chronic Assessment and plan: August 14. Continue Nexium. We discussed reducing the dose to improve absorpti on of iron. August 27. She does not wish to reduce Nexium to improve her iron absorption. She complains of mid abdominal discomfort in addition to GERD. Fecal H. pylori antigen will be ordered. Qualifiers: Esophagitis presence: esophagitis presence not specified Qualified Code(s): K21.9 - Gastro-esophageal reflux disease without esophagitis (4) HTN (hypertension) Current Visit: No Status: Chronic Assessment and plan: August 14. Continue lisinopril and Lasix August 25. Continue lisinopril. Change from Lasix to Bumex. Qualifiers: Hypertension type: essential hypertension Qualified Code(s): I10 - Essential (primary) hypertension (5) Anemia Current Visit: Yes Status: Acute Assessment and plan: August 14. Anemia testing showed iron 52, transferrin saturation 14%, transferrin 271, ferritin 45, B12 221, and folate 8.8. She will be started on ferrous sulfate with ascorbic acid. She will receive a B12 injection today and start oral B12 supplement. August 17. Continue ferrous sulfate with ascorbic acid and B12 supplementation. Monitor CBC periodically. August 23. Check CBC in a.m. She wishes to contact her PCP and see if there are additional labs he wishes to have drawn before her follow-up visit with him shortly after discharge next week. August 25. Hemoglobin has slightly decreased to 10.3. Continue to monitor. August 27. Repeat iron studies show iron 39, transferrin saturation 9%, transferrin 296, and ferritin 30. She does not want to discontinue PPI to facilitate iron absorption due to GERD symptoms. Iron sucrose will be given IV. Qualifiers: Anemia type: unspecified type Qualified Code(s): D64.9 - Anemia, unspec ified (6) Edema Current Visit: Yes Status: Acute Assessment and plan: August 25. Check BN peptide in a.m. Change from Lasix to Bumex. August 27. BN peptide normal at 51. Discontinue Celebrex and see if edema lessens. Qualifiers: Edema type: unspecified Qualified Code(s): R60.9 - Edema, unspecified - Subjective Interval history: August 14. She has no new complaints. August 17. She complains of nasal congestion. She reports the orthopedist gave her an encouraging report at the visit yesterday. She is to remain [facility] at this time August 20. She has no new complaints. She feels she is making progress but is not ready to return home yet. August 23. She has no new complaints. She states the intensity of her pain has overall lessened but its duration has slightly increased. She has noted some pain in her left hip area after therapy today. August 25. She states her lower legs are more swollen than prior to coming in the hospital. August 27. She has no new complaints. August 29. She has no new complaints. - Constitutional Vitals: Temp Pulse Resp BP Pulse Ox 98.2 F 84 14 124/67 95 08/29/18 06:37 08/29/18 06:37 08/29/18 06:37 08/29/18 06:37 08/29/18 08:26 Exam: She is sitting in a chair at bedside resting comfortably. Her lower leg edema is not significantly changed. Her affect is bright and cheerful. I reviewed her medications and lab results. Internal Medicine: Result - Labs CBC & Chem 7: 08/26/18 04:50 08/26/18 04:50 - ABG Interpretation ABG results: PT/INR, D-dimer PT 10.5 Seconds (9.4-12.1) 08/13/18 05:20 Consult Discharge Plan - Plan Referrals: Skip Costa DO [Primary Care Provider] - 1 week
[2018-08-30] MEDS: *HR* HYDROmorphone 2 MG TABLET PO PRN ×5 (01:53→22:08)
[2018-08-30] MEDS: *HR* Enoxaparin 40 MG/0.4 ML SYRINGE SQ SCH (05:29)
[2018-08-30] MEDS: Ascorbic Acid 500 MG TABLET PO SCH (05:29)
[2018-08-30] MEDS: traMADol 50 MG TABLET PO PRN ×2 (05:29→20:31)
[2018-08-30] MEDS: Cyanocobalamin (B-12) 1,000 MCG TABLET PO SCH (08:24)
[2018-08-30] MEDS: Bumetanide 1 MG TABLET PO SCH ×2 (08:24→17:14)
[2018-08-30] MEDS: Gabapentin 300 MG CAPSULE PO SCH (08:24)
[2018-08-30] MEDS: ESOMEPRAZOLE 40MG PO SCH ×2 (08:29→17:14)
[2018-08-30] MEDS: Morphine Intrathecdal Pump IT SCH (13:12)
[2018-08-30] MEDS: Gabapentin 400 MG CAPSULE PO SCH ×2 (17:14→22:08)
[2018-08-31] MEDS: *HR* HYDROmorphone 2 MG TABLET PO PRN ×4 (03:00→18:54)
[2018-08-31] MEDS: Ascorbic Acid 500 MG TABLET PO SCH (06:18)
[2018-08-31] MEDS: *HR* Enoxaparin 40 MG/0.4 ML SYRINGE SQ SCH (06:18)
[2018-08-31] MEDS: traMADol 50 MG TABLET PO PRN ×3 (06:24→23:40)
[2018-08-31] MEDS: Bumetanide 1 MG TABLET PO SCH ×2 (07:49→16:07)
[2018-08-31] MEDS: ESOMEPRAZOLE 40MG PO SCH ×2 (07:49→16:07)
[2018-08-31] MEDS: Cyanocobalamin (B-12) 1,000 MCG TABLET PO SCH (08:06)
[2018-08-31] MEDS: Gabapentin 300 MG CAPSULE PO SCH (08:06)
[2018-08-31] MEDS: Morphine Intrathecdal Pump IT SCH (11:13)
--- NOTE | 2018-08-31 12:38 | Internal Med Progress Note ---
Date of Encounter: 08/31/18 Time of Encounter: 12:30 - Assessment and plan (1) Pubic ramus fracture Current Visit: No Status: Acute Assessment and plan: August 14. Continue PT and OT with analgesics. August 17. Continue present Rx. Follow-up with orthopedist in a few weeks. August 25. Start Lovenox for DVT prophylaxis. Qualifiers: Fracture type: closed Laterality: right Fracture healing: with routine healing Qualified Code(s): S32.591D - Other specified fracture of right pubis, subsequent encounter for fracture with routine healing (2) Osteogenesis imperfecta Current Visit: No Status: Acute Assessment and plan: August 14. Continue present Rx (3) GERD (gastroesophageal reflux disease) Current Visit: No Status: Chronic Assessment and plan: August 14. Continue Nexium. We discussed reducing the dose to improve absorpti on of iron. August 27. She does not wish to reduce Nexium to improve her iron absorption. She complains of mid abdominal discomfort in addition to GERD. Fecal H. pylori antigen will be ordered. August 31. She does not mention abdominal discomfort today. Fecal H. pylori antigen report pending. Qualifiers: Esophagitis presence: esophagitis presence not specified Qualified Code(s): K21.9 - Gastro-esophageal reflux disease without esophagitis (4) HTN (hypertension) Current Visit: No Status: Chronic Assessment and plan: August 14. Continue lisinopril and Lasix August 25. Continue lisinopril. Change from Lasix to Bumex. Qualifiers: Hypertension type: essential hypertension Qualified Code(s): I10 - Essential (primary) hypertension (5) Anemia Current Visit: Yes Status: Acute Assessment and plan: August 14. Anemia testing showed iron 52, transferrin saturation 14%, transferrin 271, ferritin 45, B12 221, and folate 8.8. She will be started on ferrous sulfate with ascorbic acid. She will receive a B12 injection today and start oral B12 supplement. August 17. Continue ferrous sulfate with ascorbic acid and B12 supplementation. Monitor CBC periodically. August 23. Check CBC in a.m. She wishes to contact her PCP and see if there are additional labs he wishes to have drawn before her follow-up visit with him shortly after discharge next week. August 25. Hemoglobin has slightly decreased to 10.3. Continue to monitor. August 27. Repeat iron studies show iron 39, transferrin saturation 9%, transferrin 296, and ferritin 30. She does not want to discontinue PPI to facilitate iron absorption due to GERD symptoms. Iron sucrose will be given IV. Qualifiers: Anemia type: unspecified type Qualified Code(s): D64.9 - Anemia, unspec ified (6) Edema Current Visit: Yes Status: Acute Assessment and plan: August 25. Check BN peptide in a.m. Change from Lasix to Bumex. August 27. BN peptide normal at 51. Discontinue Celebrex and see if edema lessens. August 31. Remain off Celebrex. She agreed to decrease Neurontin to 800 mg every 8 hours. Qualifiers: Edema type: unspecified Qualified Code(s): R60.9 - Edema, unspecified - Subjective Interval history: August 14. She has no new complaints. August 17. She complains of nasal congestion. She reports the orthopedist gave her an encouraging report at the visit yesterday. She is to remain [facility] at this time August 20. She has no new complaints. She feels she is making progress but is not ready to return home yet. August 23. She has no new complaints. She states the intensity of her pain has overall lessened but its duration has slightly increased. She has noted some pain in her left hip area after therapy today. August 25. She states her lower legs are more swollen than prior to coming in the hospital. August 27. She has no new complaints. August 29. She has no new complaints. August 31. She has no new complaints. She saw the orthopedist who did not feel she should be discharged today. He wishes to see her again in 2 weeks. - Constitutional Vitals: Temp Pulse Resp BP Pulse Ox 98.4 F 89 18 111/75 97 08/31/18 06:40 08/31/18 06:40 08/31/18 06:40 08/31/18 06:40 08/31/18 06:40 Exam: She is sitting in a chair at bedside resting comfortable. The lower leg edema has decreased very slightly. Her affect is bright and cheerful. I reviewed her medications and lab results. Internal Medicine: Result - Labs CBC & Chem 7: 08/26/18 04:50 08/26/18 04:50 - ABG Interpretation ABG results: PT/INR, D-dimer PT 10.5 Seconds (9.4-12.1) 08/13/18 05:20 Consult Discharge Plan - Plan Referrals: Skip Costa DO [Primary Care Provider] - 1 week
[2018-08-31] MEDS: Gabapentin 400 MG CAPSULE PO SCH ×2 (15:29→23:35)
[2018-09-01] MEDS: *HR* HYDROmorphone 2 MG TABLET PO PRN ×3 (04:32→20:59)
[2018-09-01] MEDS: *HR* Enoxaparin 40 MG/0.4 ML SYRINGE SQ SCH (06:04)
[2018-09-01] MEDS: Ascorbic Acid 500 MG TABLET PO SCH (06:04)
[2018-09-01] MEDS: ESOMEPRAZOLE 40MG PO SCH ×2 (09:29→17:24)
[2018-09-01] MEDS: Cyanocobalamin (B-12) 1,000 MCG TABLET PO SCH (09:30)
[2018-09-01] MEDS: traMADol 50 MG TABLET PO PRN ×2 (09:30→17:23)
[2018-09-01] MEDS: Gabapentin 400 MG CAPSULE PO SCH ×3 (09:30→23:56)
[2018-09-01] MEDS: Bumetanide 1 MG TABLET PO SCH ×2 (09:30→17:23)
[2018-09-01] MEDS: Morphine Intrathecdal Pump IT SCH (13:56)
[2018-09-02] MEDS: traMADol 50 MG TABLET PO PRN ×2 (01:23→19:44)
[2018-09-02] MEDS: *HR* HYDROmorphone 2 MG TABLET PO PRN ×4 (03:03→21:47)
[2018-09-02] MEDS: Ascorbic Acid 500 MG TABLET PO SCH (06:11)
[2018-09-02] MEDS: *HR* Enoxaparin 40 MG/0.4 ML SYRINGE SQ SCH (06:12)
[2018-09-02] MEDS: ESOMEPRAZOLE 40MG PO SCH ×2 (06:12→17:25)
[2018-09-02] MEDS: Gabapentin 400 MG CAPSULE PO SCH ×2 (07:18→17:24)
[2018-09-02] MEDS: Bumetanide 1 MG TABLET PO SCH ×2 (07:19→17:24)
[2018-09-02] MEDS: Cyanocobalamin (B-12) 1,000 MCG TABLET PO SCH (07:19)
[2018-09-02] MEDS: Ondansetron ODT 4 MG TAB.RAPDIS SL PRN (09:37)
[2018-09-02] MEDS: Morphine Intrathecdal Pump IT SCH (15:09)
[2018-09-03] MEDS: Gabapentin 400 MG CAPSULE PO SCH ×3 (00:51→16:19)
[2018-09-03] MEDS: *HR* Enoxaparin 40 MG/0.4 ML SYRINGE SQ SCH (05:35)
[2018-09-03] MEDS: Ascorbic Acid 500 MG TABLET PO SCH (05:35)
[2018-09-03] MEDS: traMADol 50 MG TABLET PO PRN ×2 (05:36→14:29)
[2018-09-03] MEDS: ESOMEPRAZOLE 40MG PO SCH ×2 (06:41→16:19)
[2018-09-03] MEDS: Cyanocobalamin (B-12) 1,000 MCG TABLET PO SCH (08:24)
[2018-09-03] MEDS: Bumetanide 1 MG TABLET PO SCH ×2 (08:24→16:19)
[2018-09-03] MEDS: *HR* HYDROmorphone 2 MG TABLET PO PRN ×4 (08:26→22:17)
[2018-09-03] MEDS: Morphine Intrathecdal Pump IT SCH (13:53)
[2018-09-04] MEDS: Gabapentin 400 MG CAPSULE PO SCH ×3 (00:21→16:10)
[2018-09-04] MEDS: traMADol 50 MG TABLET PO PRN ×2 (00:23→12:27)
[2018-09-04] MEDS: *HR* HYDROmorphone 2 MG TABLET PO PRN ×2 (05:01→16:13)
[2018-09-04] MEDS: *HR* Enoxaparin 40 MG/0.4 ML SYRINGE SQ SCH (05:01)
[2018-09-04] MEDS: Ascorbic Acid 500 MG TABLET PO SCH (05:01)
[2018-09-04] MEDS: Bumetanide 1 MG TABLET PO SCH ×2 (07:54→16:10)
[2018-09-04] MEDS: ESOMEPRAZOLE 40MG PO SCH ×2 (07:54→16:10)
[2018-09-04] MEDS: Cyanocobalamin (B-12) 1,000 MCG TABLET PO SCH (08:12)
--- NOTE | 2018-09-04 15:02 | Internal Med Progress Note ---
Date of Encounter: 09/04/18 Time of Encounter: 14:55 - Assessment and plan (1) Pubic ramus fracture Current Visit: No Status: Acute Assessment and plan: August 14. Continue PT and OT with analgesics. August 17. Continue present Rx. Follow-up with orthopedist in a few weeks. August 25. Start Lovenox for DVT prophylaxis. Qualifiers: Fracture type: closed Laterality: right Fracture healing: with routine healing Qualified Code(s): S32.591D - Other specified fracture of right pubis, subsequent encounter for fracture with routine healing (2) Osteogenesis imperfecta Current Visit: No Status: Acute Assessment and plan: August 14. Continue present Rx (3) GERD (gastroesophageal reflux disease) Current Visit: No Status: Chronic Assessment and plan: August 14. Continue Nexium. We discussed reducing the dose to improve absorpti on of iron. August 27. She does not wish to reduce Nexium to improve her iron absorption. She complains of mid abdominal discomfort in addition to GERD. Fecal H. pylori antigen will be ordered. August 31. She does not mention abdominal discomfort today. Fecal H. pylori antigen report pending. September 04. She has not mention abdominal discomfort again. H. pylori antigen was negative. Continue to observe without further workup. Qualifiers: Esophagitis presence: esophagitis presence not specified Qualified Code(s): K21.9 - Gastro-esophageal reflux disease without esophagitis (4) HTN (hypertension) Current Visit: No Status: Chronic Assessment and plan: August 14. Continue lisinopril and Lasix August 25. Continue lisinopril. Change from Lasix to Bumex. Qualifiers: Hypertension type: essential hypertension Qualified Code(s): I10 - Essential (primary) hypertension (5) Anemia Current Visit: Yes Status: Acute Assessment and plan: August 14. Anemia testing showed iron 52, transferrin saturation 14%, transferrin 271, ferritin 45, B12 221, and folate 8.8. She will be started on ferrous sulfate with ascorbic acid. She will receive a B12 injection today and start oral B12 supplement. August 17. Continue ferrous sulfate with ascorbic acid and B12 supplementation. Monitor CBC periodically. August 23. Check CBC in a.m. She wishes to contact her PCP and see if there are additional labs he wishes to have drawn before her follow-up visit with him shortly after discharge next week. August 25. Hemoglobin has slightly decreased to 10.3. Continue to monitor. August 27. Repeat iron studies show iron 39, transferrin saturation 9%, transferrin 296, and ferritin 30. She does not want to discontinue PPI to facilitate iron absorption due to GERD symptoms. Iron sucrose will be given IV. September 04. Recheck labs in a.m. Qualifiers: Anemia type: unspecified type Qualified Code(s): D64.9 - Anemia, unspecified (6) Edema Current Visit: Yes Status: Acute Assessment and plan: August 25. Check BN peptide in a.m. Change from Lasix to Bumex. August 27. BN peptide normal at 51. Discontinue Celebrex and see if edema lessens. August 31. Remain off Celebrex. She agreed to decrease Neurontin to 800 mg every 8 hours. September 04. Now resolved. Remain off Celebrex and continue lower dose Neurontin. Qualifiers: Edema type: unspecified Qualified Code(s): R60.9 - Edema, unspecified - Subjective Interval history: August 14. She has no new complaints. August 17. She complains of nasal congestion. She reports the orthopedist gave her an encouraging report at the visit yesterday. She is to remain [facility] at this time August 20. She has no new complaints. She feels she is making progress but is not ready to return home yet. August 23. She has no new complaints. She states the intensity of her pain has overall lessened but its duration has slightly increased. She has noted some pain in her left hip area after therapy today. August 25. She states her lower legs are more swollen than prior to coming in the hospital. August 27. She has no new complaints. August 29. She has no new complaints. August 31. She has no new complaints. She saw the orthopedist who did not feel she should be discharged today. He wishes to see her again in 2 weeks. September 04. She has no new complaints. - Constitutional Vitals: Temp Pulse Resp BP Pulse Ox 98.2 F 85 16 105/63 93 09/04/18 06:21 09/04/18 06:21 09/04/18 06:21 09/04/18 06:21 09/04/18 06:21 Exam: She is resting comfortably in bed and appears in no acute distress. She has no pitting edema now of her lower legs. Her affect is bright and cheerful. I reviewed her medications and lab results. Internal Medicine: Result - Labs CBC & Chem 7: 08/26/18 04:50 08/26/18 04:50 - ABG Interpretation ABG results: PT/INR, D-dimer PT 10.5 Seconds (9.4-12.1) 08/13/18 05:20 Consult Discharge Plan - Plan Referrals: Skip Costa DO [Primary Care Provider] - 1 week
[2018-09-04] MEDS: Morphine Intrathecdal Pump IT SCH (15:08)
[2018-09-05] MEDS: Gabapentin 400 MG CAPSULE PO SCH ×3 (00:19→16:19)
[2018-09-05] MEDS: *HR* HYDROmorphone 2 MG TABLET PO PRN ×2 (03:12→11:32)
[2018-09-05 04:55] LABS: Basophils # 0.1 K/mcL (0.0-0.2); Basophils % 0.7 %; Eosinophils # 0.4 K/mcL (0.0-0.6); Eosinophils % 4.8 %; Hematocrit 37.8 % (35.3-44.9); Hemoglobin 12.4 g/dL (11.5-15.4); Immature Granulocytes % 0.4 % (0-4); Lymphocytes # 1.9 K/mcL (0.6-4.6); Lymphocytes % 26.6 %; Mean Corpuscular HGB Conc 32.8 g/dL (31.6-35.5); Mean Corpuscular Hemoglobin 28.2 pg (28.0-33.3); Mean Corpuscular Volume 86.1 fL (83.0-100.0); Mean Platelet Volume 10.1 fL (9.4-12.4); Monocytes # 0.6 K/mcL (0.0-1.3); Monocytes % 8.4 %; Neutrophils # 4.3 K/mcL (1.6-8.9); Platelet Count 350 K/mcL (140-400); Red Blood Count 4.39 M/mcL (3.82-4.97); Red Cell Distribution Width 12.4 % (11.5-14.5); Segmented Neutrophils % 59.1 %; White Blood Count 7.3 K/mcL (4.3-11.1)
[2018-09-05 05:19] LABS: BUN/Creatinine Ratio 36 (6-26); Blood Urea Nitrogen 27 mg/dL (6-20); Calcium 9.3 mg/dL (8.6-10.3); Carbon Dioxide 34 mEq/L (23-29); Chloride 91 mEq/L (98-107); Glucose 101 mg/dL (70-105); Osmolality,Calculated 279 (280-300); Potassium 3.8 mEq/L (3.5-5.1); Sodium 132 mEq/L (136-145); eGFR For African Americans > 60 (> 60); eGFR For Non-African Americans > 60 (> 60)
[2018-09-05] MEDS: Ascorbic Acid 500 MG TABLET PO SCH (06:00)
[2018-09-05] MEDS: *HR* Enoxaparin 40 MG/0.4 ML SYRINGE SQ SCH (06:00)
[2018-09-05] MEDS: traMADol 50 MG TABLET PO PRN ×2 (07:12→21:26)
[2018-09-05] MEDS: Bumetanide 1 MG TABLET PO SCH ×2 (07:24→16:19)
[2018-09-05] MEDS: ESOMEPRAZOLE 40MG PO SCH ×2 (07:25→16:19)
[2018-09-05] MEDS: Cyanocobalamin (B-12) 1,000 MCG TABLET PO SCH (09:32)
[2018-09-05] MEDS: Morphine Intrathecdal Pump IT SCH (12:55)
[2018-09-06] MEDS: Gabapentin 400 MG CAPSULE PO SCH ×4 (00:29→20:10)
[2018-09-06] MEDS: *HR* HYDROmorphone 2 MG TABLET PO PRN ×3 (00:29→22:52)
[2018-09-06] MEDS: traMADol 50 MG TABLET PO PRN ×2 (06:46→20:11)
[2018-09-06] MEDS: Ascorbic Acid 500 MG TABLET PO SCH (06:46)
[2018-09-06] MEDS: *HR* Enoxaparin 40 MG/0.4 ML SYRINGE SQ SCH (06:46)
[2018-09-06] MEDS: Cyanocobalamin (B-12) 1,000 MCG TABLET PO SCH (08:17)
[2018-09-06] MEDS: Bumetanide 1 MG TABLET PO SCH ×2 (08:17→16:12)
[2018-09-06] MEDS: ESOMEPRAZOLE 40MG PO SCH ×2 (08:18→16:12)
[2018-09-06] MEDS: Morphine Intrathecdal Pump IT SCH (13:08)
[2018-09-07] MEDS: traMADol 50 MG TABLET PO PRN ×2 (06:35→19:38)
[2018-09-07] MEDS: Ascorbic Acid 500 MG TABLET PO SCH (06:35)
[2018-09-07] MEDS: *HR* Enoxaparin 40 MG/0.4 ML SYRINGE SQ SCH (06:35)
[2018-09-07] MEDS: Cyanocobalamin (B-12) 1,000 MCG TABLET PO SCH (07:42)
[2018-09-07] MEDS: Bumetanide 1 MG TABLET PO SCH ×2 (07:42→15:46)
[2018-09-07] MEDS: Gabapentin 400 MG CAPSULE PO SCH ×3 (07:42→19:37)
[2018-09-07] MEDS: ESOMEPRAZOLE 40MG PO SCH ×2 (07:42→15:46)
[2018-09-07] MEDS: Artificial Tears SOLN 15 ML BOTTLE BOTH EYES PRN ×2 (07:43→15:45)
[2018-09-07] MEDS: Morphine Intrathecdal Pump IT SCH (11:29)
[2018-09-07] MEDS: *HR* HYDROmorphone 2 MG TABLET PO PRN (15:46)
--- NOTE | 2018-09-07 15:47 | Internal Med Progress Note ---
Date of Encounter: 09/07/18 Time of Encounter: 15:40 - Assessment and plan (1) Pubic ramus fracture Current Visit: No Status: Acute Assessment and plan: August 14. Continue PT and OT with analgesics. August 17. Continue present Rx. Follow-up with orthopedist in a few weeks. August 25. Start Lovenox for DVT prophylaxis. Qualifiers: Fracture type: closed Laterality: right Fracture healing: with routine healing Qualified Code(s): S32.591D - Other specified fracture of right pubis, subsequent encounter for fracture with routine healing (2) Osteogenesis imperfecta Current Visit: No Status: Acute Assessment and plan: August 14. Continue present Rx (3) GERD (gastroesophageal reflux disease) Current Visit: No Status: Chronic Assessment and plan: August 14. Continue Nexium. We discussed reducing the dose to improve absorpti on of iron. August 27. She does not wish to reduce Nexium to improve her iron absorption. She complains of mid abdominal discomfort in addition to GERD. Fecal H. pylori antigen will be ordered. August 31. She does not mention abdominal discomfort today. Fecal H. pylori antigen report pending. September 04. She has not mention abdominal discomfort again. H. pylori antigen was negative. Continue to observe without further workup. Qualifiers: Esophagitis presence: esophagitis presence not specified Qualified Code(s): K21.9 - Gastro-esophageal reflux disease without esophagitis (4) HTN (hypertension) Current Visit: No Status: Chronic Assessment and plan: August 14. Continue lisinopril and Lasix August 25. Continue lisinopril. Change from Lasix to Bumex. Qualifiers: Hypertension type: essential hypertension Qualified Code(s): I10 - Essential (primary) hypertension (5) Anemia Current Visit: Yes Status: Acute Assessment and plan: August 14. Anemia testing showed iron 52, transferrin saturation 14%, transferrin 271, ferritin 45, B12 221, and folate 8.8. She will be started on ferrous sulfate with ascorbic acid. She will receive a B12 injection today and start oral B12 supplement. August 17. Continue ferrous sulfate with ascorbic acid and B12 supplementation. Monitor CBC periodically. August 23. Check CBC in a.m. She wishes to contact her PCP and see if there are additional labs he wishes to have drawn before her follow-up visit with him shortly after discharge next week. August 25. Hemoglobin has slightly decreased to 10.3. Continue to monitor. August 27. Repeat iron studies show iron 39, transferrin saturation 9%, transferrin 296, and ferritin 30. She does not want to discontinue PPI to facilitate iron absorption due to GERD symptoms. Iron sucrose will be given IV. September 04. Recheck labs in a.m. September 07. Hemoglobin normal at 12.4. Continue to monitor periodically. Qualifiers: Anemia type: unspecified type Qualified Code(s): D64.9 - Anemia, unspecified (6) Edema Current Visit: Yes Status: Acute Assessment and plan: August 25. Check BN peptide in a.m. Change from Lasix to Bumex. August 27. BN peptide normal at 51. Discontinue Celebrex and see if edema lessens. August 31. Remain off Celebrex. She agreed to decrease Neurontin to 800 mg every 8 hours. September 04. Now resolved. Remain off Celebrex and continue lower dose Neurontin. Qualifiers: Edema type: unspecified Qualified Code(s): R60.9 - Edema, unspecified - Subjective Interval history: August 14. She has no new complaints. August 17. She complains of nasal congestion. She reports the orthopedist gave her an encouraging report at the visit yesterday. She is to remain [facility] at this time August 20. She has no new complaints. She feels she is making progress but is not ready to return home yet. August 23. She has no new complaints. She states the intensity of her pain has overall lessened but its duration has slightly increased. She has noted some pain in her left hip area after therapy today. August 25. She states her lower legs are more swollen than prior to coming in the hospital. August 27. She has no new complaints. August 29. She has no new complaints. August 31. She has no new complaints. She saw the orthopedist who did not feel she should be discharged today. He wishes to see her again in 2 weeks. September 04. She has no new complaints. September 07. She has no new complaints. - Constitutional Vitals: Temp Pulse Resp BP Pulse Ox 98.1 F 82 18 118/55 94 09/07/18 06:53 09/07/18 06:53 09/07/18 06:53 09/07/18 06:53 09/07/18 06:53 Exam: She is resting comfortably in a chair at bedside. There is 0 to trace edema of her lower legs bilaterally. Her affect is bright and cheerful. I reviewed her medications and lab results. Internal Medicine: Result - Labs CBC & Chem 7: 09/05/18 04:47 09/05/18 04:47 - ABG Interpretation ABG results: PT/INR, D-dimer PT 10.5 Seconds (9.4-12.1) 08/13/18 05:20 - VTE Documentation of Mechanical Device: Graduated compression elastic hosiery Consult Discharge Plan - Plan Referrals: Skip Costa DO [Primary Care Provider] - 1 week
[2018-09-08] MEDS: Ascorbic Acid 500 MG TABLET PO SCH (05:22)
[2018-09-08] MEDS: traMADol 50 MG TABLET PO PRN ×3 (05:22→22:21)
[2018-09-08] MEDS: *HR* Enoxaparin 40 MG/0.4 ML SYRINGE SQ SCH (05:23)
[2018-09-08] MEDS: ESOMEPRAZOLE 40MG PO SCH ×2 (08:00→17:00)
[2018-09-08] MEDS: *HR* HYDROmorphone 2 MG TABLET PO PRN ×3 (08:01→20:47)
[2018-09-08] MEDS: Gabapentin 400 MG CAPSULE PO SCH ×3 (08:02→20:47)
[2018-09-08] MEDS: Bumetanide 1 MG TABLET PO SCH ×2 (08:02→16:45)
[2018-09-08] MEDS: Cyanocobalamin (B-12) 1,000 MCG TABLET PO SCH (08:02)
[2018-09-08] MEDS: Morphine Intrathecdal Pump IT SCH (13:24)
[2018-09-09] MEDS: *HR* HYDROmorphone 2 MG TABLET PO PRN ×3 (02:31→21:06)
[2018-09-09] MEDS: traMADol 50 MG TABLET PO PRN ×2 (06:34→16:49)
[2018-09-09] MEDS: *HR* Enoxaparin 40 MG/0.4 ML SYRINGE SQ SCH (06:34)
[2018-09-09] MEDS: Ascorbic Acid 500 MG TABLET PO SCH (06:34)
[2018-09-09] MEDS: ESOMEPRAZOLE 40MG PO SCH ×2 (07:48→15:34)
[2018-09-09] MEDS: Gabapentin 400 MG CAPSULE PO SCH ×3 (07:48→21:06)
[2018-09-09] MEDS: Bumetanide 1 MG TABLET PO SCH ×2 (07:48→15:34)
[2018-09-09] MEDS: Cyanocobalamin (B-12) 1,000 MCG TABLET PO SCH (07:48)
[2018-09-09] MEDS: Morphine Intrathecdal Pump IT SCH (13:39)
--- NOTE | 2018-09-09 15:01 | Internal Med Progress Note ---
Date of Encounter: 09/09/18 Time of Encounter: 14:50 - Assessment and plan (1) Pubic ramus fracture Current Visit: No Status: Acute Assessment and plan: August 14. Continue PT and OT with analgesics. August 17. Continue present Rx. Follow-up with orthopedist in a few weeks. August 25. Start Lovenox for DVT prophylaxis. Qualifiers: Fracture type: closed Laterality: right Fracture healing: with routine healing Qualified Code(s): S32.591D - Other specified fracture of right pubis, subsequent encounter for fracture with routine healing (2) Osteogenesis imperfecta Current Visit: No Status: Acute Assessment and plan: August 14. Continue present Rx (3) GERD (gastroesophageal reflux disease) Current Visit: No Status: Chronic Assessment and plan: August 14. Continue Nexium. We discussed reducing the dose to improve absorpti on of iron. August 27. She does not wish to reduce Nexium to improve her iron absorption. She complains of mid abdominal discomfort in addition to GERD. Fecal H. pylori antigen will be ordered. August 31. She does not mention abdominal discomfort today. Fecal H. pylori antigen report pending. September 04. She has not mention abdominal discomfort again. H. pylori antigen was negative. Continue to observe without further workup. Qualifiers: Esophagitis presence: esophagitis presence not specified Qualified Code(s): K21.9 - Gastro-esophageal reflux disease without esophagitis (4) HTN (hypertension) Current Visit: No Status: Chronic Assessment and plan: August 14. Continue lisinopril and Lasix August 25. Continue lisinopril. Change from Lasix to Bumex. Qualifiers: Hypertension type: essential hypertension Qualified Code(s): I10 - Essential (primary) hypertension (5) Anemia Current Visit: Yes Status: Acute Assessment and plan: August 14. Anemia testing showed iron 52, transferrin saturation 14%, transferrin 271, ferritin 45, B12 221, and folate 8.8. She will be started on ferrous sulfate with ascorbic acid. She will receive a B12 injection today and start oral B12 supplement. August 17. Continue ferrous sulfate with ascorbic acid and B12 supplementation. Monitor CBC periodically. August 23. Check CBC in a.m. She wishes to contact her PCP and see if there are additional labs he wishes to have drawn before her follow-up visit with him shortly after discharge next week. August 25. Hemoglobin has slightly decreased to 10.3. Continue to monitor. August 27. Repeat iron studies show iron 39, transferrin saturation 9%, transferrin 296, and ferritin 30. She does not want to discontinue PPI to facilitate iron absorption due to GERD symptoms. Iron sucrose will be given IV. September 04. Recheck labs in a.m. September 07. Hemoglobin normal at 12.4. Continue to monitor periodically. Qualifiers: Anemia type: unspecified type Qualified Code(s): D64.9 - Anemia, unspecified (6) Edema Current Visit: Yes Status: Acute Assessment and plan: August 25. Check BN peptide in a.m. Change from Lasix to Bumex. August 27. BN peptide normal at 51. Discontinue Celebrex and see if edema lessens. August 31. Remain off Celebrex. She agreed to decrease Neurontin to 800 mg every 8 hours. September 04. Now resolved. Remain off Celebrex and continue lower dose Neurontin. September 09. No pitting edema present. Continue Bumex, lower dose Neurontin, and remain off Celebrex Qualifiers: Edema type: unspecified Qualified Code(s): R60.9 - Edema, unspecified (7) Sternal pain Current Visit: Yes Status: Acute Assessment and plan: September 09. Order sternum x-rays. (8) Left hip pain Current Visit: Yes Status: Acute Assessment and plan: September 09. Order left hip x-rays. - Subjective Interval history: August 14. She has no new complaints. August 17. She complains of nasal congestion. She reports the orthopedist gave her an encouraging report at the visit yesterday. She is to remain [facility] at this time August 20. She has no new complaints. She feels she is making progress but is not ready to return home yet. August 23. She has no new complaints. She states the intensity of her pain has overall lessened but its duration has slightly increased. She has noted some pa in in her left hip area after therapy today. August 25. She states her lower legs are more swollen than prior to coming in the hospital. August 27. She has no new complaints. August 29. She has no new complaints. August 31. She has no new complaints. She saw the orthopedist who did not feel she should be discharged today. He wishes to see her again in 2 weeks. September 04. She has no new complaints. September 07. She has no new complaints. September 09. She complains of pain in her sternum that occurred as she was reaching to pull her tray table toward her. She reports pain in her left hip has been present for 2-3 days. - Constitutional Vitals: Temp Pulse Resp BP Pulse Ox 98.4 F 88 18 127/73 99 09/09/18 07:34 09/09/18 07:34 09/09/18 07:34 09/09/18 07:34 09/09/18 07:34 Exam: She has significant tenderness on light compression of the upper midline sternum area. No discoloration of the skin is seen. I reviewed her medications and lab results. Internal Medicine: Result - Labs CBC & Chem 7: 09/05/18 04:47 09/05/18 04:47 - ABG Interpretation ABG results: PT/INR, D-dimer PT 10.5 Seconds (9.4-12.1) 08/13/18 05:20 - VTE Documentation of Mechanical Device: Graduated compression elastic hosiery Consult Discharge Plan - Plan Referrals: Skip Costa DO [Primary Care Provider] - 1 week
[2018-09-10] MEDS: traMADol 50 MG TABLET PO PRN ×3 (00:24→17:19)
[2018-09-10] MEDS: *HR* HYDROmorphone 2 MG TABLET PO PRN ×4 (04:56→20:34)
[2018-09-10] MEDS: Ascorbic Acid 500 MG TABLET PO SCH (06:45)
[2018-09-10] MEDS: *HR* Enoxaparin 40 MG/0.4 ML SYRINGE SQ SCH (06:46)
[2018-09-10] MEDS: ESOMEPRAZOLE 40MG PO SCH ×2 (08:09→17:11)
[2018-09-10] MEDS: Gabapentin 400 MG CAPSULE PO SCH ×3 (08:09→20:34)
[2018-09-10] MEDS: Bumetanide 1 MG TABLET PO SCH ×2 (08:09→17:10)
[2018-09-10] MEDS: Cyanocobalamin (B-12) 1,000 MCG TABLET PO SCH (08:10)
[2018-09-10] MEDS: Artificial Tears SOLN 15 ML BOTTLE BOTH EYES PRN ×2 (11:03→17:19)
[2018-09-10] MEDS: Morphine Intrathecdal Pump IT SCH (13:11)
[2018-09-10] MEDS: Ondansetron ODT 4 MG TAB.RAPDIS SL PRN (22:00)
[2018-09-11] MEDS: traMADol 50 MG TABLET PO PRN ×3 (06:07→22:54)
[2018-09-11] MEDS: Ondansetron ODT 4 MG TAB.RAPDIS SL PRN (06:07)
[2018-09-11] MEDS: Ascorbic Acid 500 MG TABLET PO SCH (06:07)
[2018-09-11] MEDS: *HR* Enoxaparin 40 MG/0.4 ML SYRINGE SQ SCH (06:08)
[2018-09-11] MEDS: ESOMEPRAZOLE 40MG PO SCH ×2 (07:37→16:36)
[2018-09-11] MEDS: Bumetanide 1 MG TABLET PO SCH ×2 (07:37→16:36)
[2018-09-11] MEDS: Cyanocobalamin (B-12) 1,000 MCG TABLET PO SCH (08:21)
[2018-09-11] MEDS: Gabapentin 400 MG CAPSULE PO SCH ×3 (08:21→19:54)
[2018-09-11] MEDS: Artificial Tears SOLN 15 ML BOTTLE BOTH EYES PRN (08:27)
[2018-09-11] MEDS: *HR* HYDROmorphone 2 MG TABLET PO PRN ×2 (12:31→19:54)
[2018-09-11] MEDS: Morphine Intrathecdal Pump IT SCH (14:51)
[2018-09-12] MEDS: *HR* HYDROmorphone 2 MG TABLET PO PRN ×4 (00:05→19:32)
[2018-09-12] MEDS: Ascorbic Acid 500 MG TABLET PO SCH (05:13)
[2018-09-12] MEDS: *HR* Enoxaparin 40 MG/0.4 ML SYRINGE SQ SCH (05:13)
[2018-09-12] MEDS: ESOMEPRAZOLE 40MG PO SCH ×2 (07:31→16:01)
[2018-09-12] MEDS: Bumetanide 1 MG TABLET PO SCH ×2 (07:31→16:01)
[2018-09-12] MEDS: traMADol 50 MG TABLET PO PRN ×2 (07:40→16:05)
[2018-09-12] MEDS: Gabapentin 400 MG CAPSULE PO SCH ×3 (08:18→21:30)
[2018-09-12] MEDS: Cyanocobalamin (B-12) 1,000 MCG TABLET PO SCH (08:19)
--- NOTE | 2018-09-12 10:47 | Internal Med Progress Note ---
Date of Encounter: 09/12/18 Time of Encounter: 10:25 - Assessment and plan (1) Pubic ramus fracture Current Visit: No Status: Acute Assessment and plan: August 14. Continue PT and OT with analgesics. August 17. Continue present Rx. Follow-up with orthopedist in a few weeks. August 25. Start Lovenox for DVT prophylaxis. September 12. Anticipate discharge home 09/14/2018. Qualifiers: Fracture type: closed Laterality: right Fracture healing: with routine healing Qualified Code(s): S32.591D - Other specified fracture of right pubis, subsequent encounter for fracture with routine healing (2) Osteogenesis imperfecta Current Visit: No Status: Acute Assessment and plan: August 14. Continue present Rx (3) GERD (gastroesophageal reflux disease) Current Visit: No Status: Chronic Assessment and plan: August 14. Continue Nexium. We discussed reducing the dose to improve absorption of iron. August 27. She does not wish to reduce Nexium to improve her iron absorption. She complains of mid abdominal discomfort in addition to GERD. Fecal H. pylori antigen will be ordered. August 31. She does not mention abdominal discomfort today. Fecal H. pylori antigen report pending. September 04. She has not mention abdominal discomfort again. H. pylori antigen was negative. Continue to observe without further workup. Qualifiers: Esophagitis presence: esophagitis presence not specified Qualified Code(s): K21.9 - Gastro-esophageal reflux disease without esophagitis (4) HTN (hypertension) Current Visit: No Status: Chronic Assessment and plan: August 14. Continue lisinopril and Lasix August 25. Continue lisinopril. Change from Lasix to Bumex. Qualifiers: Hypertension type: essential hypertension Qualified Code(s): I10 - Esse ntial (primary) hypertension (5) Anemia Current Visit: Yes Status: Acute Assessment and plan: August 14. Anemia testing showed iron 52, transferrin saturation 14%, transferrin 271, ferritin 45, B12 221, and folate 8.8. She will be started on ferrous sulfate with ascorbic acid. She will receive a B12 injection today and start oral B12 supplement. August 17. Continue ferrous sulfate with ascorbic acid and B12 supplementation. Monitor CBC periodically. August 23. Check CBC in a.m. She wishes to contact her PCP and see if there are additional labs he wishes to have drawn before her follow-up visit with him shortly after discharge next week. August 25. Hemoglobin has slightly decreased to 10.3. Continue to monitor. August 27. Repeat iron studies show iron 39, transferrin saturation 9%, transferrin 296, and ferritin 30. She does not want to discontinue PPI to facilitate iron absorption due to GERD symptoms. Iron sucrose will be given IV. September 04. Recheck labs in a.m. September 07. Hemoglobin normal at 12.4. Continue to monitor periodically. Qualifiers: Anemia type: unspecified type Qualified Code(s): D64.9 - Anemia, unspecified (6) Edema Current Visit: Yes Status: Acute Assessment and plan: August 25. Check BN peptide in a.m. Change from Lasix to Bumex. August 27. BN peptide normal at 51. Discontinue Celebrex and see if edema lessens. August 31. Remain off Celebrex. She agreed to decrease Neurontin to 800 mg every 8 hours. September 04. Now resolved. Remain off Celebrex and continue lower dose Neurontin. September 09. No pitting edema present. Continue Bumex, lower dose Neurontin, and remain off Celebrex Qualifiers: Edema type: unspecified Qualified Code(s): R60.9 - Edema, unspecified (7) Sternal pain Current Visit: Yes Status: Acute Assessment and plan: September 09. Order sternum x-rays. September 12. Chest CT showed no worrisome pathology. She did not mention the pain today. Observe without further workup. (8) Left hip pain Current Visit: Yes Status: Acute Assessment and plan: September 09. Order left hip x-rays. September 12. Hip x-ray showed old pubic ramus fractures but no acute abnormality. - Subjective Interval history: August 14. She has no new complaints. August 17. She complains of nasal congestion. She reports the orthopedist gave her an encouraging report at the visit yesterday. She is to remain [facility] at this time August 20. She has no new complaints. She feels she is making progress but is not ready to return home yet. August 23. She has no new complaints. She states the intensity of her pain has overall lessened but its duration has slightly increased. She has noted some pain in her left hip area after therapy today. August 25. She states her lower legs are more swollen than prior to coming in the hospital. August 27. She has no new complaints. August 29. She has no new complaints. August 31. She has no new complaints. She saw the orthopedist who did not feel she should be discharged today. He wishes to see her again in 2 weeks. September 04. She has no new complaints. September 07. She has no new complaints. September 09. She complains of pain in her sternum that occurred as she was reaching to pull her tray table toward her. She reports pain in her left hip has been present for 2-3 days. September 12. She has no new complaints. - Constitutional Vitals: Temp Pulse Resp BP Pulse Ox 98.1 F 87 16 136/82 95 09/12/18 07:29 09/12/18 07:29 09/12/18 07:29 09/12/18 07:29 09/12/18 07:29 Exam: She is sitting in a chair at bedside resting comfortably. Her affect is bright and cheerful. I reviewed her medications and past lab results. I reviewed her CT report. Internal Medicine: Result - Labs CBC & Chem 7: 09/05/18 04:47 09/05/18 04:47 - ABG Interpretation ABG results: PT/INR, D-dimer PT 10.5 Seconds (9.4-12.1) 08/13/18 05:20 - VTE Documentation of Mechanical Device: Graduated compression elastic hosiery Consult Discharge Plan - Plan Referrals: Skip Costa DO [Primary Care Provider] - 1 week
[2018-09-12] MEDS: Morphine Intrathecdal Pump IT SCH (13:13)
[2018-09-12] MEDS: Ondansetron ODT 4 MG TAB.RAPDIS SL PRN (21:30)
[2018-09-13] MEDS: *HR* HYDROmorphone 2 MG TABLET PO PRN ×5 (01:20→19:39)
[2018-09-13] MEDS: Ascorbic Acid 500 MG TABLET PO SCH (05:26)
[2018-09-13] MEDS: *HR* Enoxaparin 40 MG/0.4 ML SYRINGE SQ SCH (05:27)
[2018-09-13] MEDS: Bumetanide 1 MG TABLET PO SCH ×2 (09:14→17:12)
[2018-09-13] MEDS: Gabapentin 400 MG CAPSULE PO SCH ×3 (09:15→19:39)
[2018-09-13] MEDS: Cyanocobalamin (B-12) 1,000 MCG TABLET PO SCH (09:15)
[2018-09-13] MEDS: ESOMEPRAZOLE 40MG PO SCH ×2 (09:15→17:12)
[2018-09-13] MEDS: traMADol 50 MG TABLET PO PRN (12:56)
[2018-09-13] MEDS: Morphine Intrathecdal Pump IT SCH (16:21)
[2018-09-14] MEDS: traMADol 50 MG TABLET PO PRN ×3 (00:39→15:07)
[2018-09-14] MEDS: *HR* HYDROmorphone 2 MG TABLET PO PRN ×3 (03:09→12:37)
[2018-09-14] MEDS: Ascorbic Acid 500 MG TABLET PO SCH (07:00)
[2018-09-14] MEDS: *HR* Enoxaparin 40 MG/0.4 ML SYRINGE SQ SCH (07:00)
[2018-09-14 07:21] VITALS: BP 131/85
[2018-09-14] MEDS: Gabapentin 400 MG CAPSULE PO SCH ×2 (09:41→15:07)
[2018-09-14] MEDS: Bumetanide 1 MG TABLET PO SCH (09:41)
[2018-09-14] MEDS: Cyanocobalamin (B-12) 1,000 MCG TABLET PO SCH (09:42)
[2018-09-14] MEDS: ESOMEPRAZOLE 40MG PO SCH (09:43)
--- NOTE | 2018-09-14 10:50 | Discharge Summary ---
Date of Encounter: 09/14/18 Time of Encounter: 10:19 - Discharge Diagnosis (1) Pubic ramus fracture Priority: Primary Status: Acute Qualifiers: Fracture type: closed Laterality: right Fracture healing: with routine healing Qualified Code(s): S32.591D - Other specified fracture of right pubis, subsequent encounter for fracture with routine healing (2) Osteogenesis imperfecta Priority: Secondary Status: Acute (3) GERD (gastroesophageal reflux disease) Priority: Secondary Status: Chronic Qualifiers: Esophagitis presence: esophagitis presence not specified Qualified Code(s): K21.9 - Gastro-esophageal reflux disease without esophagitis (4) HTN (hypertension) Priority: Secondary Status: Chronic Qualifiers: Hypertension type: essential hypertension Qualified Code(s): I10 - Essential (primary) hypertension (5) Anemia Priority: Secondary Status: Acute Qualifiers: Anemia type: unspecified type Qualified Code(s): D64.9 - Anemia, unspecified (6) Edema Priority: Secondary Status: Resolved Qualifiers: Edema type: unspecified Qualified Code(s): R60.9 - Edema, unspecified (7) Sternal pain Priority: Secondary Status: Acute (8) Left hip pain Priority: Secondary Status: Acute Hospital course: Ms. Cabello is a 58 year old female who was hospitalized at [facility] August 08- after presenting with a low impact fall at home. She was found to have nondisplaced pubic root fracture extending into the right acetabulum. She was treated nonoperatively. She was discharged to [facility] swing bed for rehabilitation therapy prior to returning to independent living at home. Initial orders were written by the discharging physicians at [facility]. I saw her on August 13 and performed the swing bed history and physical. She had physical therapy and occupational therapy evaluations with ongoing intervention. Analgesics were given scheduled and prn. She made gradual progress with therapy. She followed with her orthopedist twice during her hospital stay and will continue to follow with orthopedic service after discharge home. Celebrex was discontinued, Neurontin dose reduced, and Lasix was changed to Bumex. There was marked decrease in edema and she will continue this regimen at home. Anemia testing showed iron 52, transferrin saturation 14%, transferrin 271, ferritin 45, B12 221, and folate 8.8. She was given a B12 injection and started on oral B12 supplement. She was also started on oral ferrous sulfate with ascorbic acid. Hemoglobin had improved to 12.4 by September 05. She will continue this regimen at discharge and her PCP can monitor labs. On September 14 arrangements were complete for her to be discharged home. She will have home health services. She will follow with her PCP Dr. James Costa within 1 week. She will follow with the orthopedist as directed. - Time Spent with Patient Total time spent providing and/or coordinating discharge services: - Discharge Medications Prescriptions: New Bumetanide [Bumex] 1 mg PO DAILY #30 tablet Ferrous Sulfate 325 mg PO DAILY@0630 #30 tablet Gabapentin [Neurontin] 800 mg PO TID 4 Days #24 capsule Potassium Chloride 10 meq PO DAILY #30 tab.er.prt Tramadol HCl [Ultram] 100 mg PO Q6H PRN 4 Days #32 tab PRN Reason: Pain Cyanocobalamin (B-12) [Vitamin B12] 1,000 mcg PO DAILY #30 tablet Ascorbic Acid [Vitamin C] 500 mg PO DAILY@0630 #30 tablet Continued DULoxetine [Cymbalta] 30 mg PO BID Esomeprazole Magnesium [Nexium] 40 mg PO BID Lisinopril [Zestril] 10 mg PO DAILY Ondansetron [Zofran ODT] 8 mg PO 6XD PRN PRN Reason: NAUSEA/VOMITING Morphine Sulfate/Pf [Morphine IntraThecdal Pump] 1 each IT AD Cyclobenzaprine [Flexeril] 10 mg PO TID PRN #30 tablet PRN Reason: Spasms Discontinued Celecoxib [Celebrex] 200 mg PO BID Furosemide [Lasix] 20 mg PO BID Gabapentin 600 mg PO QAM Gabapentin 1,200 mg PO HS Gabapentin 1,200 mg PO QPM Tramadol HCl [Ultram] 50 mg PO Q8H PRN PRN Reason: Pain Home Medications: DULoxetine [Cymbalta] 30 mg PO BID 08/08/18 [History] Esomeprazole Magnesium [Nexium] 40 mg PO BID 08/08/18 [History] Lisinopril [Zestril] 10 mg PO DAILY 08/08/18 [History] Morphine Sulfate/Pf [Morphine IntraThecdal Pump] 1 each IT AD 08/08/18 [History] Ondansetron [Zofran ODT] 8 mg PO 6XD PRN 08/08/18 [History] Cyclobenzaprine [Flexeril] 10 mg PO TID PRN #30 tablet 08/12/18 [Rx] Ascorbic Acid [Vitamin C] 500 mg PO DAILY@0630 #30 tablet 09/14/18 [Rx] Bumetanide [Bumex] 1 mg PO DAILY #30 tablet 09/14/18 [Rx] Cyanocobalamin (B-12) [Vitamin B12] 1,000 mcg PO DAILY #30 tablet 09/14/18 [Rx] Ferrous Sulfate 325 mg PO DAILY@0630 #30 tablet 09/14/18 [Rx] Gabapentin [Neurontin] 800 mg PO TID 4 Days #24 capsule 09/14/18 [Rx] Potassium Chloride 10 meq PO DAILY #30 tab.er.prt 09/14/18 [Rx] Tramadol HCl [Ultram] 100 mg PO Q6H PRN 4 Days #32 tab 09/14/18 [Rx] Allergies/Adverse Reactions: Allergy/AdvReac Type Severity Reaction Status Date / Time acetaminophen [From Percocet] AdvReac See Verified 07/05/18 13:26 Comments baclofen AdvReac Blurry Verified 07/05/18 13:26 Vision ibuprofen AdvReac Nausea Verified 07/05/18 13:26 methadone AdvReac See Verified 07/05/18 13:26 Comments naproxen [From Aleve] AdvReac Nausea Verified 07/05/18 13:26 omeprazole [From Prilosec] AdvReac Gastrointestinal Verified 08/14/18 08:21 Upset oxycodone [From Percocet] AdvReac See Verified 07/05/18 13:26 Comments oxymorphone [From Opana] AdvReac See Verified 07/05/18 13:26 Comments pregabalin [From Lyrica] AdvReac See Verified 07/05/18 13:26 Comments Tizanidine [From Zanaflex] AdvReac Blurry Verified 07/05/18 13:26 Vision tramadol [From Ultracet] AdvReac See Verified 07/05/18 13:26 Comments Date of admission: 08/12/18 15:17 Primary care physician: James Costa DO Consults: 08/12/18 13:56 Consult to Occupational Therapy [CONS] Routine Comment: eval, develop and implement POC Reason for Consult: eval, develop and implement POC nonweightbearing right lower extremity Does patient have active BEDREST order?: No Is patient medically & hemodynamically stable?: Yes Consult to Physical Therapy [CONS] Routine Comment: eval, develop and implement POC Reason for Consult: eval, develop and implement POC nonweightbearing right lower extremity Does patient have active BEDREST order?: No Is patient medically & hemodynamically stable?: Yes Consult to Retail Account Manager [CONS] Routine Reason for SW Consult: may need HH upon discharge, lives alone, wheelchair bound - Constitutional Vitals: Temp Pulse Resp BP Pulse Ox 98.3 F 87 21 131/85 99 09/14/18 07:19 09/14/18 07:19 09/14/18 07:19 09/14/18 07:19 09/14/18 07:19 - Patient Status Disposition: Home Health Service - Discharge Instructions Follow Up With: Skip Costa DO [Primary Care Provider] - 1 week - Diet and Activity Activity: as per physical therapy Diet: advance to your usual diet - VTE Documentation of Mechanical Device: Graduated compression elastic hosiery
--- NOTE | 2018-09-14 11:01 | Physician Discharge Referral ---
Home Health/Hosp Referral Info Transfer to: Home Health Attending Provider: Jc Provider in Charge Post Discharge: PCP Damian) - Diagnosis (1) Pubic ramus fracture Priority: Primary Status: Acute (2) Osteogenesis imperfecta Priority: Secondary Status: Acute (3) GERD (gastroesophageal reflux disease) Priority: Secondary Status: Chronic (4) HTN (hypertension) Priority: Secondary Status: Chronic (5) Anemia Priority: Secondary Status: Acute (6) Edema Priority: Secondary Status: Resolved (7) Sternal pain Priority: Secondary Status: Acute (8) Left hip pain Priority: Secondary Status: Acute - Respiratory Orders Smoking Cessation: Smoking cessation has been advised. For more information, call the [place] Tobacco Quit Line at 5-420-XHKD-NOW. - Diet/Nutrition Diet/Nutrition Orders: Cardiac - Activity Activity Orders: Chair - Services Needed Following services are medically necessary services: Nursing, Home Health Aide, Physical Therapy, Occupational Therapy - Transfer Medications Prescriptions: Bumetanide [Bumex] 1 mg PO DAILY #30 tablet Ferrous Sulfate 325 mg PO DAILY@0630 #30 tablet Gabapentin [Neurontin] 800 mg PO TID 4 Days #24 capsule Potassium Chloride 10 meq PO DAILY #30 tab.er.prt Tramadol HCl [Ultram] 100 mg PO Q6H PRN 4 Days #32 tab PRN Reason: Pain Cyanocobalamin (B-12) [Vitamin B12] 1,000 mcg PO DAILY #30 tablet Ascorbic Acid [Vitamin C] 500 mg PO DAILY@0630 #30 tablet Home Medications: DULoxetine [Cymbalta] 30 mg PO BID 08/08/18 [History] Esomeprazole Magnesium [Nexium] 40 mg PO BID 08/08/18 [History] Lisinopril [Zestril] 10 mg PO DAILY 08/08/18 [History] Morphine Sulfate/Pf [Morphine IntraThecdal Pump] 1 each IT AD 08/08/18 [History] Ondansetron [Zofran ODT] 8 mg PO 6XD PRN 08/08/18 [History] Cyclobenzaprine [Flexeril] 10 mg PO TID PRN #30 tablet 08/12/18 [Rx] Ascorbic Acid [Vitamin C] 500 mg PO DAILY@0630 #30 tablet 09/14/18 [Rx] Bumetanide [Bumex] 1 mg PO DAILY #30 tablet 09/14/18 [Rx] Cyanocobalamin (B-12) [Vitamin B12] 1,000 mcg PO DAILY #30 tablet 09/14/18 [Rx] Ferrous Sulfate 325 mg PO DAILY@0630 #30 tablet 09/14/18 [Rx] Gabapentin [Neurontin] 800 mg PO TID 4 Days #24 capsule 09/14/18 [Rx] Potassium Chloride 10 meq PO DAILY #30 tab.er.prt 09/14/18 [Rx] Tramadol HCl [Ultram] 100 mg PO Q6H PRN 4 Days #32 tab 09/14/18 [Rx] Allergies/Adverse Reactions: Allergy/AdvReac Type Severity Reaction Status Date / Time acetaminophen [From Percocet] AdvReac See Verified 07/05/18 13:26 Comments baclofen AdvReac Blurry Verified 07/05/18 13:26 Vision ibuprofen AdvReac Nausea Verified 07/05/18 13:26 methadone AdvReac See Verified 07/05/18 13:26 Comments naproxen [From Aleve] AdvReac Nausea Verified 07/05/18 13:26 omeprazole [From Prilosec] AdvReac Gastrointestinal Verified 08/14/18 08:21 Upset oxycodone [From Percocet] AdvReac See Verified 07/05/18 13:26 Comments oxymorphone [From Opana] AdvReac See Verified 07/05/18 13:26 Comments pregabalin [From Lyrica] AdvReac See Verified 07/05/18 13:26 Comments Tizanidine [From Zanaflex] AdvReac Blurry Verified 07/05/18 13:26 Vision tramadol [From Ultracet] AdvReac See Verified 07/05/18 13:26 Comments Certification: Further, I certify that my clinical findings support that this patient is homebound (i.e. absences from home require considerable and taxing effort and are for medical reasons or mandaeism services or infrequently or short duration when for other reasons) because: Homebound Reason: Leaving home requires considerable and taxing effort due to condition (Pelvic fracture with impaired weightbearing ability.) Attestation: My signature below is to certify that this patient is under my care and that I, or nurse practitioner, or a physician's office assistant receptionist working with me, has a [id number] encounter with this patient.
[2018-09-14] MEDS: Morphine Intrathecdal Pump IT SCH (15:02)
== END 2018-09-14 15:30 | disposition home health service (06) | DRG 560 ==
LOC: INPPIK 15:17
PROVIDERS: ADMIT Internal Medicine; ATTEND Internal Medicine

== ENCOUNTER 2020-12-09 17:24 | Inpatient (IN) ==
[2020-12-09] MEDS ORDERED: Naloxone 0.4 MG/ML INJ IVP PRN (18:23)
[2020-12-09] MEDS ORDERED: Ondansetron ODT 4 MG TAB.RAPDIS SL PRN (23:00)
[2020-12-09] MEDS: [UNRECOGNIZED DRUG - OTHER] IT SCH (23:34)
[2020-12-10] MEDS: *HR* OxyCODONE/APAP 5/325 TABLET PO PRN ×4 (01:20→15:46)
[2020-12-10] MEDS: *HR* Heparin 5,000 UNIT/ML VIAL SQ SCH ×2 (06:08→16:41)
[2020-12-10 07:43] LABS: Hematocrit 33.2 % (35.3-44.9); Hemoglobin 10.5 g/dL (11.5-15.4); Mean Corpuscular HGB Conc 31.6 g/dL (31.6-35.5); Mean Corpuscular Hemoglobin 27.9 pg (28.0-33.3); Mean Corpuscular Volume 88.1 fL (83.0-100.0); Mean Platelet Volume 10.3 fL (9.4-12.4); Platelet Count 337 K/mcL (140-400); Red Blood Count 3.77 M/mcL (3.82-4.97); Red Cell Distribution Width 12.8 % (11.5-14.5); White Blood Count 6.4 K/mcL (4.3-11.1)
[2020-12-10 07:54] LABS: BUN/Creatinine Ratio 14 (6-26); Blood Urea Nitrogen 10 mg/dL (8-23); Calcium 8.6 mg/dL (8.6-10.3); Carbon Dioxide 30 mEq/L (23-29); Chloride 101 mEq/L (98-107); Glucose 91 mg/dL (70-105); Osmolality,Calculated 287 (280-300); Potassium 3.8 mEq/L (3.5-5.1); Sodium 139 mEq/L (136-145); eGFR For African Americans > 60 (> 60); eGFR For Non-African Americans > 60 (> 60)
[2020-12-10] MEDS: Loratadine 10 MG TABLET PO SCH (08:41)
[2020-12-10] MEDS: Gabapentin 400 MG CAPSULE PO SCH ×3 (08:41→21:22)
[2020-12-10] MEDS: Fluticasone Propionate Nasal 50 MCG/SPRAY BOTTLE NS SCH (08:44)
[2020-12-10] MEDS: [UNRECOGNIZED DRUG - OTHER] IT SCH (18:06)
[2020-12-10] MEDS: Doxycycline 100 MG CAPSULE PO SCH (21:22)
[2020-12-11] MEDS: *HR* OxyCODONE/APAP 5/325 TABLET PO PRN ×4 (00:34→16:35)
[2020-12-11] MEDS: *HR* Heparin 5,000 UNIT/ML VIAL SQ SCH ×2 (06:58→16:35)
[2020-12-11] MEDS: Fluticasone Propionate Nasal 50 MCG/SPRAY BOTTLE NS SCH (08:34)
[2020-12-11] MEDS: Doxycycline 100 MG CAPSULE PO SCH ×2 (08:36→21:12)
[2020-12-11] MEDS: Loratadine 10 MG TABLET PO SCH (08:36)
[2020-12-11] MEDS: Gabapentin 400 MG CAPSULE PO SCH ×3 (08:36→21:12)
[2020-12-11] MEDS ORDERED: polyethylene glycoL 3350 17 GM POWD.PACK PO PRN (15:22)
[2020-12-11] MEDS: [UNRECOGNIZED DRUG - OTHER] IT SCH (21:12)
[2020-12-12] MEDS: *HR* OxyCODONE/APAP 5/325 TABLET PO PRN ×4 (00:07→21:31)
[2020-12-12] MEDS: *HR* Heparin 5,000 UNIT/ML VIAL SQ SCH ×2 (06:33→16:06)
[2020-12-12] MEDS: Fluticasone Propionate Nasal 50 MCG/SPRAY BOTTLE NS SCH (08:40)
[2020-12-12] MEDS: Gabapentin 400 MG CAPSULE PO SCH ×3 (08:41→21:32)
[2020-12-12] MEDS: Doxycycline 100 MG CAPSULE PO SCH ×2 (08:41→21:31)
[2020-12-12] MEDS: Loratadine 10 MG TABLET PO SCH (08:41)
[2020-12-12] MEDS: Sennosides/Docusate Sodium TABLET PO PRN ×2 (13:41→21:32)
[2020-12-12] MEDS: [UNRECOGNIZED DRUG - OTHER] IT SCH (17:13)
[2020-12-13] MEDS: *HR* Heparin 5,000 UNIT/ML VIAL SQ SCH ×2 (04:04→17:04)
[2020-12-13] MEDS: *HR* OxyCODONE/APAP 5/325 TABLET PO PRN ×4 (04:04→23:59)
[2020-12-13] MEDS: Doxycycline 100 MG CAPSULE PO SCH ×2 (08:19→21:19)
[2020-12-13] MEDS: Fluticasone Propionate Nasal 50 MCG/SPRAY BOTTLE NS SCH (08:19)
[2020-12-13] MEDS: Loratadine 10 MG TABLET PO SCH (08:20)
[2020-12-13] MEDS: Gabapentin 400 MG CAPSULE PO SCH ×3 (08:20→21:18)
[2020-12-13] MEDS: Sennosides/Docusate Sodium TABLET PO PRN (08:23)
[2020-12-13] MEDS: [UNRECOGNIZED DRUG - OTHER] IT SCH (17:08)
[2020-12-14] MEDS: *HR* OxyCODONE/APAP 5/325 TABLET PO PRN ×2 (04:45→11:19)
[2020-12-14] MEDS: *HR* Heparin 5,000 UNIT/ML VIAL SQ SCH ×2 (06:13→17:18)
[2020-12-14 07:48] VITALS: TEMP 98.2
[2020-12-14] MEDS: Doxycycline 100 MG CAPSULE PO SCH (08:53)
[2020-12-14] MEDS: Gabapentin 400 MG CAPSULE PO SCH ×2 (08:53→14:16)
[2020-12-14] MEDS: Loratadine 10 MG TABLET PO SCH (08:53)
[2020-12-14] MEDS: Fluticasone Propionate Nasal 50 MCG/SPRAY BOTTLE NS SCH (08:56)
[2020-12-14 14:15] VITALS: BP 156/85; PULSE 92; RESP 18; O2SAT 100
[2020-12-14] MEDS: [UNRECOGNIZED DRUG - OTHER] IT SCH (17:10)
== END 2020-12-14 17:21 | disposition other institution (70) | DRG 603 ==
LOC: INPPIK
PROVIDERS: ADMIT Family Medicine; ATTEND Family Medicine

== ENCOUNTER 2020-12-14 16:21 | Inpatient (IN) ==
[2020-12-14] MEDS: *HR* Heparin 5,000 UNIT/ML VIAL SQ SCH (19:39)
[2020-12-14] MEDS: Gabapentin 400 MG CAPSULE PO SCH (21:35)
[2020-12-14] MEDS: Doxycycline 100 MG CAPSULE PO SCH (21:35)
[2020-12-14] MEDS: Celecoxib 100 MG CAPSULE PO SCH (21:36)
[2020-12-15] MEDS: Ondansetron ODT 4 MG TAB.RAPDIS PO PRN ×2 (00:10→10:43)
[2020-12-15] MEDS: *HR* Heparin 5,000 UNIT/ML VIAL SQ SCH ×2 (05:49→17:54)
[2020-12-15 07:19] LABS: Basophils # 0.1 K/mcL (0.0-0.2); Basophils % 0.6 %; Eosinophils # 0.4 K/mcL (0.0-0.6); Eosinophils % 5.5 %; Hematocrit 32.3 % (35.3-44.9); Hemoglobin 10.3 g/dL (11.5-15.4); Immature Granulocytes % 0.9 % (0-4); Lymphocytes # 2.2 K/mcL (0.6-4.6); Lymphocytes % 26.9 %; Mean Corpuscular HGB Conc 31.9 g/dL (31.6-35.5); Mean Corpuscular Hemoglobin 27.5 pg (28.0-33.3); Mean Corpuscular Volume 86.4 fL (83.0-100.0); Mean Platelet Volume 10.3 fL (9.4-12.4); Monocytes # 0.6 K/mcL (0.0-1.3); Monocytes % 7.2 %; Neutrophils # 4.8 K/mcL (1.6-8.9); Platelet Count 364 K/mcL (140-400); Red Blood Count 3.74 M/mcL (3.82-4.97); Red Cell Distribution Width 12.7 % (11.5-14.5); Segmented Neutrophils % 58.9 %; White Blood Count 8.1 K/mcL (4.3-11.1)
[2020-12-15 07:41] LABS: BUN/Creatinine Ratio 24 (6-26); Blood Urea Nitrogen 17 mg/dL (8-23); Calcium 8.8 mg/dL (8.6-10.3); Carbon Dioxide 31 mEq/L (23-29); Chloride 100 mEq/L (98-107); Glucose 86 mg/dL (70-105); Osmolality,Calculated 289 (280-300); Potassium 3.9 mEq/L (3.5-5.1); Sodium 139 mEq/L (136-145); eGFR For African Americans > 60 (> 60); eGFR For Non-African Americans > 60 (> 60)
[2020-12-15] MEDS: Loratadine 10 MG TABLET PO SCH (09:52)
[2020-12-15] MEDS: Gabapentin 400 MG CAPSULE PO SCH ×3 (09:52→21:12)
[2020-12-15] MEDS: Doxycycline 100 MG CAPSULE PO SCH ×2 (09:52→21:12)
[2020-12-15] MEDS: Celecoxib 100 MG CAPSULE PO SCH ×2 (09:53→21:13)
[2020-12-15] MEDS: Fluticasone Propionate Nasal 50 MCG/SPRAY BOTTLE NS SCH (10:49)
[2020-12-15] MEDS: MORPHINE IT SCH ×2 (11:04→18:31)
[2020-12-16] MEDS: *HR* Heparin 5,000 UNIT/ML VIAL SQ SCH ×2 (05:25→17:42)
[2020-12-16] MEDS: Doxycycline 100 MG CAPSULE PO SCH ×2 (10:08→19:54)
[2020-12-16] MEDS: Celecoxib 100 MG CAPSULE PO SCH ×2 (10:08→19:53)
[2020-12-16] MEDS: Gabapentin 400 MG CAPSULE PO SCH ×3 (10:08→19:54)
[2020-12-16] MEDS: Loratadine 10 MG TABLET PO SCH (10:08)
[2020-12-16] MEDS: Fluticasone Propionate Nasal 50 MCG/SPRAY BOTTLE NS SCH (10:09)
[2020-12-16] MEDS: MORPHINE IT SCH (17:39)
[2020-12-16 19:24] VITALS: O2SAT 98
[2020-12-17] MEDS: *HR* Heparin 5,000 UNIT/ML VIAL SQ SCH (06:13)
[2020-12-17 07:31] VITALS: BP 137/78; PULSE 88; RESP 16; TEMP 98
[2020-12-17] MEDS: Gabapentin 400 MG CAPSULE PO SCH (07:56)
[2020-12-17] MEDS: Celecoxib 100 MG CAPSULE PO SCH (07:56)
[2020-12-17] MEDS: Loratadine 10 MG TABLET PO SCH (07:56)
[2020-12-17] MEDS: Doxycycline 100 MG CAPSULE PO SCH (07:57)
[2020-12-17] MEDS: Fluticasone Propionate Nasal 50 MCG/SPRAY BOTTLE NS SCH (07:57)
== END 2020-12-17 10:47 | disposition home health service (06) | DRG 945 ==
LOC: INPPIK 19:04
PROVIDERS: ADMIT Family Medicine; ATTEND Family Medicine

== ENCOUNTER 2020-12-22 04:52 | Inpatient (IN) ==
[2020-12-22] MEDS ORDERED: Naloxone 0.4 MG/ML INJ IVP PRN ×2 (06:24→18:16)
[2020-12-22] MEDS ORDERED: Ondansetron ODT 4 MG TAB.RAPDIS SL PRN (06:24)
[2020-12-22 08:18] LABS: Hematocrit 30.9 % (35.3-44.9); Hemoglobin 9.9 g/dL (11.5-15.4); Mean Corpuscular Hemoglobin 27.4 pg (28.0-33.3); Mean Corpuscular Volume 85.6 fL (83.0-100.0); Platelet Count 318 K/mcL (140-400); Red Blood Count 3.61 M/mcL (3.82-4.97); Red Cell Distribution Width 12.7 % (11.5-14.5); White Blood Count 9.6 K/mcL (4.3-11.1)
[2020-12-22 08:32] LABS: BUN/Creatinine Ratio 17 (6-26); Blood Urea Nitrogen 12 mg/dL (8-23); Calcium 8.7 mg/dL (8.6-10.3); Carbon Dioxide 33 mEq/L (23-29); Chloride 98 mEq/L (98-107); Glucose 96 mg/dL (70-105); Osmolality,Calculated 284 (280-300); Sodium 137 mEq/L (136-145); eGFR For African Americans > 60 (> 60); eGFR For Non-African Americans > 60 (> 60)
[2020-12-22] MEDS ORDERED: MORPHINE IT SCH (09:30)
[2020-12-22 10:05] LABS: Thyroid Stimulating Hormone 1.492 mcIU/mL (0.340-5.600)
[2020-12-22] MEDS ORDERED: Ondansetron ODT 4 MG TAB.RAPDIS PO PRN ×2 (10:15→18:16)
[2020-12-22] MEDS ORDERED: Loratadine 10 MG TABLET PO SCH (10:15)
[2020-12-22] MEDS ORDERED: Fluticasone Propionate Nasal 50 MCG/SPRAY BOTTLE NS SCH (10:15)
[2020-12-22] MEDS ORDERED: Celecoxib 100 MG CAPSULE PO SCH (10:15)
[2020-12-22] MEDS: Gabapentin 400 MG CAPSULE PO SCH ×3 (10:35→20:48)
[2020-12-22] MEDS: Patient Taking Own Medication 1 EACH IT SCH (19:28)
[2020-12-22] MEDS: Celecoxib 100 MG CAPSULE PO SCH (20:49)
[2020-12-23] MEDS: Fluticasone Propionate Nasal 50 MCG/SPRAY BOTTLE NS SCH ×2 (06:49→07:26)
[2020-12-23] MEDS: Loratadine 10 MG TABLET PO SCH ×2 (06:50→07:18)
[2020-12-23] MEDS: Gabapentin 400 MG CAPSULE PO SCH ×3 (06:51→23:23)
[2020-12-23] MEDS: Celecoxib 100 MG CAPSULE PO SCH ×2 (06:51→23:23)
[2020-12-23 07:51] LABS: Hematocrit 34.2 % (35.3-44.9); Hemoglobin 10.8 g/dL (11.5-15.4); Mean Corpuscular HGB Conc 31.6 g/dL (31.6-35.5); Mean Corpuscular Hemoglobin 27.7 pg (28.0-33.3); Mean Corpuscular Volume 87.7 fL (83.0-100.0); Mean Platelet Volume 10.9 fL (9.4-12.4); Platelet Count 345 K/mcL (140-400); White Blood Count 7.1 K/mcL (4.3-11.1)
[2020-12-23 08:00] LABS: BUN/Creatinine Ratio 20 (6-26); Blood Urea Nitrogen 16 mg/dL (8-23); Carbon Dioxide 35 mEq/L (23-29); Chloride 99 mEq/L (98-107); Glucose 102 mg/dL (70-105); Osmolality,Calculated 289 (280-300); Potassium 3.6 mEq/L (3.5-5.1); Sodium 139 mEq/L (136-145); eGFR For African Americans > 60 (> 60); eGFR For Non-African Americans > 60 (> 60)
[2020-12-23] MEDS: Patient Taking Own Medication 1 EACH IT SCH (19:10)
[2020-12-24] MEDS: Gabapentin 400 MG CAPSULE PO SCH ×3 (10:32→21:07)
[2020-12-24] MEDS: Celecoxib 100 MG CAPSULE PO SCH ×2 (10:32→21:07)
[2020-12-24] MEDS: Loratadine 10 MG TABLET PO SCH (10:33)
[2020-12-24] MEDS: Fluticasone Propionate Nasal 50 MCG/SPRAY BOTTLE NS SCH (10:39)
[2020-12-24] MEDS: Patient Taking Own Medication 1 EACH IT SCH (21:07)
[2020-12-25] MEDS: Gabapentin 400 MG CAPSULE PO SCH ×3 (09:09→22:41)
[2020-12-25] MEDS: Fluticasone Propionate Nasal 50 MCG/SPRAY BOTTLE NS SCH (09:10)
[2020-12-25] MEDS: Celecoxib 100 MG CAPSULE PO SCH ×2 (09:10→22:42)
[2020-12-25] MEDS: Loratadine 10 MG TABLET PO SCH (09:10)
[2020-12-25] MEDS: Patient Taking Own Medication 1 EACH IT SCH (18:29)
[2020-12-26] MEDS: Gabapentin 400 MG CAPSULE PO SCH ×3 (08:32→21:14)
[2020-12-26] MEDS: Celecoxib 100 MG CAPSULE PO SCH ×2 (08:33→21:14)
[2020-12-26] MEDS: Loratadine 10 MG TABLET PO SCH (08:33)
[2020-12-26] MEDS: Fluticasone Propionate Nasal 50 MCG/SPRAY BOTTLE NS SCH (08:33)
[2020-12-26] MEDS: Patient Taking Own Medication 1 EACH IT SCH (18:12)
[2020-12-27] MEDS: Gabapentin 400 MG CAPSULE PO SCH ×3 (08:23→20:30)
[2020-12-27] MEDS: Celecoxib 100 MG CAPSULE PO SCH ×2 (08:23→20:30)
[2020-12-27] MEDS: Loratadine 10 MG TABLET PO SCH (08:23)
[2020-12-27] MEDS: Fluticasone Propionate Nasal 50 MCG/SPRAY BOTTLE NS SCH (08:24)
[2020-12-27] MEDS: Patient Taking Own Medication 1 EACH IT SCH (18:17)
[2020-12-28] MEDS: Gabapentin 400 MG CAPSULE PO SCH ×3 (09:15→19:59)
[2020-12-28] MEDS: Celecoxib 100 MG CAPSULE PO SCH ×2 (09:15→19:59)
[2020-12-28] MEDS: Loratadine 10 MG TABLET PO SCH (09:16)
[2020-12-28] MEDS: Fluticasone Propionate Nasal 50 MCG/SPRAY BOTTLE NS SCH (09:16)
[2020-12-28] MEDS: Patient Taking Own Medication 1 EACH IT SCH (18:49)
[2020-12-29] MEDS: Celecoxib 100 MG CAPSULE PO SCH ×2 (10:04→21:26)
[2020-12-29] MEDS: Loratadine 10 MG TABLET PO SCH (10:04)
[2020-12-29] MEDS: Fluticasone Propionate Nasal 50 MCG/SPRAY BOTTLE NS SCH (10:05)
[2020-12-29] MEDS: Gabapentin 300 MG CAPSULE PO SCH ×2 (14:49→21:26)
[2020-12-29] MEDS: Patient Taking Own Medication 1 EACH IT SCH (17:21)
[2020-12-29] MEDS: Gabapentin 400 MG CAPSULE PO SCH (17:22)
[2020-12-30] MEDS: Loratadine 10 MG TABLET PO SCH (08:18)
[2020-12-30] MEDS: Gabapentin 300 MG CAPSULE PO SCH ×3 (08:18→21:07)
[2020-12-30] MEDS: Celecoxib 100 MG CAPSULE PO SCH ×2 (08:18→21:08)
[2020-12-30] MEDS: Fluticasone Propionate Nasal 50 MCG/SPRAY BOTTLE NS SCH (08:19)
[2020-12-30] MEDS: Patient Taking Own Medication 1 EACH IT SCH (17:25)
[2020-12-31] MEDS: Celecoxib 100 MG CAPSULE PO SCH ×2 (08:41→21:02)
[2020-12-31] MEDS: Gabapentin 300 MG CAPSULE PO SCH ×2 (08:41→21:02)
[2020-12-31] MEDS: Fluticasone Propionate Nasal 50 MCG/SPRAY BOTTLE NS SCH (08:42)
[2020-12-31] MEDS: Loratadine 10 MG TABLET PO SCH (08:42)
[2020-12-31 09:23] LABS: Basophils % 0.7 %; Eosinophils # 0.3 K/mcL (0.0-0.6); Eosinophils % 5.5 %; Hematocrit 37.6 % (35.3-44.9); Hemoglobin 11.8 g/dL (11.5-15.4); Immature Granulocytes % 0.5 % (0-4); Lymphocytes # 1.7 K/mcL (0.6-4.6); Lymphocytes % 28.2 %; Mean Corpuscular HGB Conc 31.4 g/dL (31.6-35.5); Mean Corpuscular Hemoglobin 27.6 pg (28.0-33.3); Mean Corpuscular Volume 87.9 fL (83.0-100.0); Mean Platelet Volume 10.4 fL (9.4-12.4); Monocytes # 0.5 K/mcL (0.0-1.3); Monocytes % 8.1 %; Neutrophils # 3.5 K/mcL (1.6-8.9); Platelet Count 384 K/mcL (140-400); Red Blood Count 4.28 M/mcL (3.82-4.97); Red Cell Distribution Width 13.2 % (11.5-14.5); White Blood Count 6.1 K/mcL (4.3-11.1)
[2020-12-31 09:57] LABS: BUN/Creatinine Ratio 22 (6-26); Blood Urea Nitrogen 16 mg/dL (8-23); Calcium 8.9 mg/dL (8.6-10.3); Carbon Dioxide 32 mEq/L (23-29); Chloride 100 mEq/L (98-107); Glucose 93 mg/dL (70-105); Osmolality,Calculated 289 (280-300); Potassium 3.9 mEq/L (3.5-5.1); Sodium 139 mEq/L (136-145); eGFR For African Americans > 60 (> 60); eGFR For Non-African Americans > 60 (> 60)
[2020-12-31] MEDS: Patient Taking Own Medication 1 EACH IT SCH (17:24)
[2021-01-01] MEDS: Celecoxib 100 MG CAPSULE PO SCH ×2 (07:49→20:05)
[2021-01-01] MEDS: Loratadine 10 MG TABLET PO SCH (07:50)
[2021-01-01] MEDS: Fluticasone Propionate Nasal 50 MCG/SPRAY BOTTLE NS SCH (07:51)
[2021-01-01] MEDS: Patient Taking Own Medication 1 EACH IT SCH (07:53)
[2021-01-01] MEDS: Gabapentin 300 MG CAPSULE PO SCH (20:04)
[2021-01-02] MEDS: Celecoxib 100 MG CAPSULE PO SCH ×2 (08:58→20:50)
[2021-01-02] MEDS: Loratadine 10 MG TABLET PO SCH (08:59)
[2021-01-02] MEDS: Fluticasone Propionate Nasal 50 MCG/SPRAY BOTTLE NS SCH (08:59)
[2021-01-02] MEDS: Patient Taking Own Medication 1 EACH IT SCH (17:44)
[2021-01-02] MEDS: Gabapentin 300 MG CAPSULE PO SCH (20:50)
[2021-01-03] MEDS: Loratadine 10 MG TABLET PO SCH (08:29)
[2021-01-03] MEDS: Celecoxib 100 MG CAPSULE PO SCH ×2 (08:29→22:20)
[2021-01-03] MEDS: Fluticasone Propionate Nasal 50 MCG/SPRAY BOTTLE NS SCH (08:30)
[2021-01-03] MEDS: Patient Taking Own Medication 1 EACH IT SCH (18:49)
[2021-01-03] MEDS: Ondansetron ODT 4 MG TAB.RAPDIS SL PRN (22:19)
[2021-01-03] MEDS: Gabapentin 300 MG CAPSULE PO SCH (22:21)
[2021-01-04] MEDS: Fluticasone Propionate Nasal 50 MCG/SPRAY BOTTLE NS SCH (09:15)
[2021-01-04] MEDS: Loratadine 10 MG TABLET PO SCH (09:15)
[2021-01-04] MEDS: Celecoxib 100 MG CAPSULE PO SCH ×2 (09:16→21:30)
[2021-01-04] MEDS: Ondansetron ODT 4 MG TAB.RAPDIS SL PRN (18:10)
[2021-01-04] MEDS: Patient Taking Own Medication 1 EACH IT SCH (18:11)
[2021-01-04] MEDS: Gabapentin 300 MG CAPSULE PO SCH (21:29)
[2021-01-05] MEDS: Celecoxib 100 MG CAPSULE PO SCH ×2 (09:13→22:18)
[2021-01-05] MEDS: Fluticasone Propionate Nasal 50 MCG/SPRAY BOTTLE NS SCH ×2 (09:13→23:39)
[2021-01-05] MEDS: Loratadine 10 MG TABLET PO SCH (09:13)
[2021-01-05] MEDS: Patient Taking Own Medication 1 EACH IT SCH (16:17)
[2021-01-05] MEDS: Gabapentin 300 MG CAPSULE PO SCH (22:18)
[2021-01-05] MEDS ORDERED: Saline Nasal Spray 44 ML BOTTLE NS PRN (23:56)
[2021-01-06] MEDS: Fluticasone Propionate Nasal 50 MCG/SPRAY BOTTLE NS SCH (08:58)
[2021-01-06] MEDS: Celecoxib 100 MG CAPSULE PO SCH ×2 (08:58→21:27)
[2021-01-06] MEDS: Loratadine 10 MG TABLET PO SCH (08:58)
[2021-01-06] MEDS: Patient Taking Own Medication 1 EACH IT SCH (19:35)
[2021-01-06] MEDS: Gabapentin 300 MG CAPSULE PO SCH (21:27)
[2021-01-06] MEDS: GuaiFENesin/Codeine Oral Soln 5 ML UDC PO PRN (22:17)
[2021-01-07] MEDS: Fluticasone Propionate Nasal 50 MCG/SPRAY BOTTLE NS SCH (08:06)
[2021-01-07] MEDS: Loratadine 10 MG TABLET PO SCH (08:06)
[2021-01-07] MEDS: Celecoxib 100 MG CAPSULE PO SCH ×2 (08:06→22:01)
[2021-01-07] MEDS: GuaiFENesin/Dextromethorphan TABLET PO PRN (13:53)
[2021-01-07] MEDS: Patient Taking Own Medication 1 EACH IT SCH (17:51)
[2021-01-07] MEDS: Gabapentin 300 MG CAPSULE PO SCH (22:01)
[2021-01-07] MEDS: Ondansetron ODT 4 MG TAB.RAPDIS SL PRN (22:02)
[2021-01-08] MEDS: Celecoxib 100 MG CAPSULE PO SCH ×2 (10:29→22:38)
[2021-01-08] MEDS: Fluticasone Propionate Nasal 50 MCG/SPRAY BOTTLE NS SCH (10:29)
[2021-01-08] MEDS: Loratadine 10 MG TABLET PO SCH (10:29)
[2021-01-08] MEDS: GuaiFENesin/Dextromethorphan TABLET PO PRN (12:11)
[2021-01-08] MEDS: Gabapentin 300 MG CAPSULE PO SCH (22:38)
[2021-01-09] MEDS: GuaiFENesin/Codeine Oral Soln 5 ML UDC PO PRN (01:54)
[2021-01-09] MEDS: Patient Taking Own Medication 1 EACH IT SCH ×2 (07:39→17:46)
[2021-01-09 08:12] LABS: Basophils % 0.2 %; Hematocrit 32.5 % (35.3-44.9); Hemoglobin 10.7 g/dL (11.5-15.4); Immature Granulocytes % 0.7 % (0-4); Lymphocytes # 0.9 K/mcL (0.6-4.6); Lymphocytes % 14.4 %; Mean Corpuscular HGB Conc 32.9 g/dL (31.6-35.5); Mean Corpuscular Hemoglobin 27.6 pg (28.0-33.3); Mean Corpuscular Volume 83.8 fL (83.0-100.0); Mean Platelet Volume 10.4 fL (9.4-12.4); Monocytes # 0.2 K/mcL (0.0-1.3); Monocytes % 3.7 %; Neutrophils # 4.9 K/mcL (1.6-8.9); Platelet Count 366 K/mcL (140-400); Red Blood Count 3.88 M/mcL (3.82-4.97); Red Cell Distribution Width 12.4 % (11.5-14.5)
[2021-01-09 08:31] LABS: BUN/Creatinine Ratio 25 (6-26); Blood Urea Nitrogen 16 mg/dL (8-23); Carbon Dioxide 29 mEq/L (23-29); Chloride 94 mEq/L (98-107); Glucose 126 mg/dL (70-105); Osmolality,Calculated 275 (280-300); Potassium 4.2 mEq/L (3.5-5.1); Sodium 131 mEq/L (136-145); eGFR For African Americans > 60 (> 60); eGFR For Non-African Americans > 60 (> 60)
[2021-01-09] MEDS: Celecoxib 100 MG CAPSULE PO SCH ×2 (09:02→21:18)
[2021-01-09] MEDS: Fluticasone Propionate Nasal 50 MCG/SPRAY BOTTLE NS SCH (09:02)
[2021-01-09] MEDS: Loratadine 10 MG TABLET PO SCH (09:02)
[2021-01-09] MEDS: GuaiFENesin/Dextromethorphan TABLET PO PRN (21:18)
[2021-01-09] MEDS: Gabapentin 300 MG CAPSULE PO SCH (21:18)
[2021-01-10] MEDS: Celecoxib 100 MG CAPSULE PO SCH ×2 (08:57→21:17)
[2021-01-10] MEDS: Loratadine 10 MG TABLET PO SCH (08:57)
[2021-01-10] MEDS: Fluticasone Propionate Nasal 50 MCG/SPRAY BOTTLE NS SCH (08:57)
[2021-01-10] MEDS: Patient Taking Own Medication 1 EACH IT SCH (17:09)
[2021-01-10] MEDS: Gabapentin 300 MG CAPSULE PO SCH (21:17)
[2021-01-10] MEDS: GuaiFENesin/Dextromethorphan TABLET PO PRN (21:17)
[2021-01-11] MEDS: Fluticasone Propionate Nasal 50 MCG/SPRAY BOTTLE NS SCH (10:13)
[2021-01-11] MEDS: Celecoxib 100 MG CAPSULE PO SCH ×2 (10:13→21:28)
[2021-01-11] MEDS: Loratadine 10 MG TABLET PO SCH (10:13)
[2021-01-11] MEDS: Ondansetron ODT 4 MG TAB.RAPDIS SL PRN (10:24)
[2021-01-11] MEDS: Patient Taking Own Medication 1 EACH IT SCH (17:22)
[2021-01-11 20:05] VITALS: RESP 18; TEMP 98.1
[2021-01-11] MEDS: Gabapentin 300 MG CAPSULE PO SCH (21:28)
[2021-01-12 07:33] VITALS: BP 152/92; PULSE 94; O2SAT 91
[2021-01-12] MEDS: Loratadine 10 MG TABLET PO SCH (09:14)
[2021-01-12] MEDS: Fluticasone Propionate Nasal 50 MCG/SPRAY BOTTLE NS SCH (09:14)
[2021-01-12] MEDS: Celecoxib 100 MG CAPSULE PO SCH (09:14)
== END 2021-01-12 11:00 | disposition home or self-care (01) | DRG 945 ==
LOC: INPPIK
PROVIDERS: ADMIT Internal Medicine; ATTEND Family Medicine